=== PATIENT | female | born 1985 | race Caucasian/White ===

== ENCOUNTER 2024-06-29 09:48 | Outpatient (CLI) | payer OTHER, SELFPAY ==
[2024-06-29 20:35] LABS: Alanine Aminotransferase 24 U/L (6-35); Albumin Level 4.2 g/dL (3.5-5.1); Alkaline Phosphatase 93 U/L (38-126); Anion Gap 9 mmol/L (4-12); Aspartate Amino Transferase 34 U/L (14-36); Bilirubin,Total 0.3 mg/dL (0.2-1.3); Blood Urea Nitrogen 14 mg/dL (7-17); Calcium 8.7 mg/dL (8.4-10.2); Carbon Dioxide 28 mmol/L (22-30); Chloride 97 mmol/L (98-107); Cholesterol 190 mg/dL (0-200); Estimated Glomerular Filt Rate > 60; Glucose 297 mg/dL (65-110); HDL Direct 48 mg/dL; Potassium 4.6 mmol/L (3.4-5.0); Sodium 134 mmol/L (137-145); Triglycerides 137 mg/dL (<150)
[2024-06-29 20:46] LABS: LDL Cholesterol Direct 117 mg/dL
[2024-06-29 21:09] LABS: Creatinine Urine 67.5 mg/dL
[2024-06-29 21:14] LABS: MALB Creatinine Ratio 12.7 mg/g (0-30); Microalbumin Urine Random 8.6 mg/L (0-16.7)
[2024-06-29 21:24] LABS: Free T4 Free Thyroxine 1.37 ng/mL (0.78-2.19); Vitamin D 25 Hydroxy 53.9 ng/mL
[2024-06-30 11:38] LABS: C-Peptide <0.10 ng/mL (0.80-3.85)
== END 2024-06-29 09:49 | disposition home or self-care (01) ==
LOC: ANHGOSHLAB 09:50
PROVIDERS: Visit Provider Internal Medicine Endocrinology, Diabetes & Metabolism
DX: E10.9 Type 1 diabetes mellitus without complications (principal); E03.9 Hypothyroidism, unspecified
CPT/HCPCS: 36415; 80053; 80061; 82043; 82306; 82607; 84439; 84443; 84681

== ENCOUNTER 2024-11-02 09:55 | Outpatient (CLI) | payer OTHER, SELFPAY ==
[2024-11-02 16:27] LABS: Free T4 Free Thyroxine 1.14 ng/dL (0.78-2.19)
== END 2024-11-02 09:56 | disposition home or self-care (01) ==
LOC: ANHGOSHLAB 09:59
PROVIDERS: Visit Provider Internal Medicine Endocrinology, Diabetes & Metabolism
DX: E03.9 Hypothyroidism, unspecified (principal)
CPT/HCPCS: 36415; 84439; 84443

== ENCOUNTER 2025-04-13 09:11 | Outpatient (CLI) | payer OTHER, SELFPAY ==
[2025-04-13 12:39] LABS: Hematocrit 42.8 % (37.0-47.0); Hemoglobin 13.4 g/dL (12.0-15.0); Mean Corpuscular HGB Conc 31.3 g/dl (32-36); Mean Corpuscular Volume 79.9 fl (80-100); Platelet Count Result 297 k/mm3 (150-375); Red Blood Count 5.36 M/mm3 (4.2-5.4); Red Cell Distribution Width 13.7 % (11.5-14.5); White Blood Count 7.4 K/mm3 (4.5-10.0)
[2025-04-13 13:09] LABS: Creatinine Urine 167.4 mg/dL; Free T4 Free Thyroxine 1.37 ng/dL (0.78-2.19); Vitamin D 25 Hydroxy 58.1 ng/mL
[2025-04-13 13:40] LABS: Alanine Aminotransferase 29 U/L (6-35); Albumin Level 4.3 g/dL (3.5-5.1); Alkaline Phosphatase 60 U/L (38-126); Anion Gap 11 mmol/L (4-12); Aspartate Amino Transferase 29 U/L (14-36); Bilirubin,Total 0.3 mg/dL (0.2-1.3); Blood Urea Nitrogen 11 mg/dL (7-17); Calcium 9.4 mg/dL (8.4-10.2); Carbon Dioxide 27 mmol/L (22-30); Chloride 103 mmol/L (98-107); Cholesterol 194 mg/dL (0-200); Estimated Glomerular Filt Rate > 60; Glucose 112 mg/dL (65-110); HDL Direct 42 mg/dL; Potassium 4.2 mmol/L (3.4-5.0); Sodium 141 mmol/L (137-145); Total Protein 8.2 g/dL (6.3-8.2); Triglycerides 182 mg/dL (<150)
[2025-04-13 14:08] LABS: LDL Cholesterol Direct 107 mg/dL
[2025-04-13 14:15] LABS: Thyroid Stimulating Hormone 0.313 uIU/mL (0.465-4.680)
== END 2025-04-13 09:12 | disposition home or self-care (01) ==
LOC: ANHGOSHLAB 09:12
PROVIDERS: PCP Internal Medicine; Visit Provider Internal Medicine Endocrinology, Diabetes & Metabolism
DX: E10.65 Type 1 diabetes mellitus with hyperglycemia (principal); E03.9 Hypothyroidism, unspecified; E10.69 Type 1 diabetes mellitus with other specified complication; E78.5 Hyperlipidemia, unspecified; E55.9 Vitamin D deficiency, unspecified
CPT/HCPCS: 36415; 80053; 80061; 82043; 82306; 82607; 84439; 84443; 85027

== ENCOUNTER 2025-05-23 11:29 | Outpatient (CLI) | payer OTHER, SELFPAY ==
--- OUTSIDE RECORDS SUMMARY | 2025-05-23 11:53 | XMS_ITS | Referral Summary ---
Author Organization [address] Address [address] [place] [id number] Care Team Providers Care Makeup Editor Name Role Phone Base, [facility] Primary Care Provider Allergies Active Allergy Reactions Criticality Noted Date Comments [place] Anaphylaxis High 11/26/2021 Avocado Anaphylaxis High 11/26/2021 Levofloxacin Rash Medium 07/03/2015 Shellfish Derived Anaphylaxis High 10/22/2021 Medications acetaminophen (TYLENOL) 325 mg tablet Take 2 tablets (650 mg total) by mouth every 6 (six) hours as needed 03/21/20 22 Active buPROPion XL (WELLBUTRIN XL) 150 mg 24 hr tablet Take 1 tablet (150 mg total) by mouth daily Active busPIRone (BUSPAR) 15 mg tablet See Instructions, Take 1 tab by mouth every 8 hours as needed for acute anxiety., # 45 tab(s), 0 total refill(s), Maintenance, Pharmacy: [facility] #[id number] 01/21/20 25 Active cyclobenzaprine (FLEXERIL) 10 mg tablet Take 1 tablet (10 mg total) by mouth as needed 12/19/[address] (CYMBALTA) 60 mg capsule Take 1 capsule (60 mg total) by mouth 05/24/20 24 Active ibuprofen (ADVIL,MOTRIN) 800 mg tablet Take 1 tablet (800 mg total) by mouth every 6 (six) hours as needed 08/24/20 12 Active insulin aspart (NovoLOG) 100 unit/mL vial for injection Inject under the skin 04/19/20 19 Active insulin glargine 100 unit/mL vial for injection Inject 40 Units under the skin 02/22/20 11 Active losartan (COZAAR) 100 mg tablet Take 1 tablet (100 mg total) by mouth 05/03/20 24 Active sertraline (ZOLOFT) 100 mg tablet Take 1 tablet (100 mg total) by mouth daily 04/19/20 19 Active levothyroxine (SYNTHROID) 200 mcg tablet See Instructions, TAKE 1 TABLET BY MOUTH EVERY DAY FOR 5 DAYS AND 2 TABLETS DAILY FOR 2 DAYS A WEEK, # 108 tab(s), 3 total refill(s), Maintenance, TAKE 1 TABLET BY MOUTH EVERY DAY FOR 5 DAYS AND 2 TABLETS DAILY FOR 2 DAYS A WEEK, Pharmacy: [facility] #[id number] 11/26/19 22 Active Zepbound 15 mg/0.5 mL pen injector ADMINISTER 15 MG UNDER THE SKIN WEEKLY 01/16/20 25 Active benzonatate (TESSALON) 200 mg capsuleIndications: Acute nasopharyngitis Take 1 capsule (200 mg total) by mouth 3 (three) times a day as needed for cough keep tessalon out of reach of children, especially children under the age of 10, due to possible serious risk such as if ingested by children under the age of 10. 30 capsule 01/31/20 25 Active albuterol HFA (PROVENTIL HFA,VENTOLIN HFA,PROAIR HFA) 90 mcg/actuation inhalerIndications: Exacerbation of asthma, unspecified asthma severity, unspecified whether persistent Inhale 2 puffs every 6 (six) hours as needed for wheezing 1 each 01/31/20 25 026 Active inhalational spacing device (Aerochamber MV) spacerIndications:E xacerbation of asthma, unspecified asthma severity, unspecified whether persistent Use with albuterol inhaler 1 each 01/31/20 25 Active Active Problems Problem Noted Date Diagnosed Date Type 1 diabetes mellitus 12/28/2015 Social History Tobacco Use Types Packs/Day Years Used Date Smoking Tobacco: Every Day Comments Unknown Sex and Gender Information Value Date Recorded Sex Assigned at Not on file 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 Gender Identity Not on file Sexual Orientation Not on file Last Filed Vital Signs Vital Sign Reading Time Taken Comments Blood Pressure 120/62 02/09/2025 7:26 PM CDT Pulse 93 02/09/2025 7:26 PM CDT Temperature 37 C (98.6 F) 02/09/2025 7:26 PM CDT Respiratory Rate 20 02/09/2025 7:26 PM CDT Oxygen Saturation 98% 02/09/2025 7:26 PM CDT Inhaled Oxygen Concentration - - Weight 113.9 kg (251 lb) 02/09/2025 7:26 PM CDT Height - - Body Mass Index - - Plan of Treatment Not on file Insurance [facility] Care Teams Makeup Editor Relationship Specialty Start Date End Date [facility] [address] [place] [address] PCP - General 09/07/23
--- OUTSIDE RECORDS SUMMARY | 2025-05-23 11:53 | XMS_ITS | Clinical Summary ---
Author Organization [facility] Address [address] [place] [address] Care Team Providers Care Marine Service Operator Name Role Phone Carleen Stewart MD Unavailable Shilo Watson INFANT NANNY-ADMINISTRATIVE SUPPORT SPECIALIST Unavailable Wilfredo Ch MD Primary Care Provider [phone] Source Comments [facility],non-owned Affiliates and Associated Physician Practices is amultiple site organization consisting of ambulatory clinics and hospital sitesin [place], [place], [place] and [place]. This disclosure is being madepursuant to the Care Everywhere program and may not contain all information available regarding this patient. Last updated 18.[facility] Allergies Active Allergy Reactions Criticality Noted Date Comments Levofloxacin Rash Low 07/03/2015 Medications * Be aware that medications may not be up to date on this document. Alwaysverify current medications with the patient. buPROPion XL 24hr (WELLBUTRIN XL) 150 MG tablet Take 150 mg by mouth once daily. Active ibuprofen (MOTRIN) 800 MG tablet Take 800 mg by mouth every 6 hours as needed for Pain. Active cyclobenzaprine (FLEXERIL) 10 MG tablet Take 10 mg by mouth as needed for Muscle Spasms. Active levothyroxine (SYNTHROID) 75 MCG tablet Take 75 mcg by mouth daily before breakfast Active Blood Glucose Monitoring Suppl (FREESTYLE LITE) ALON Use 1 Each 6 times daily while awake E 10.65 1 Device 0 6 Active blood glucose test strip Use 1 Strip 6 times daily while awake 600 Strip 0 6 Active lancets Use 1 Each 6 times daily while awake 600 Each 0 6 Active NOVOLOG FLEXPEN pen INJECT 10 UNITS THREE TIMES A DAY WITH EACH MEAL 1 Box 0 6 Active LANTUS SOLOSTAR pen INJECT 45 UNITS AT BEDTIME 1 Box 0 6 Active Active Problems Problem Noted Date Diagnosed Date Uncontrolled type 1 diabetes mellitus 05/26/2013 Overview (07/19/2015): Tobacco use disorder 05/26/2013 Social History Tobacco Use Types Packs/Day Years Used Date Smoking Tobacco: Every Day Cigarettes 1 13.8 Started: 08/19/2011 Alcohol Use Standard Drinks/Week Comments Not Asked 0 (1 standard drink = 0.6 oz pur e alcohol) Comments Unknown Sex and Gender Information Value Date Recorded Sex Assigned at Not on file Legal Sex Female 12:45 PM SHOP TECH Gender Identity Not on file Sexual Orientation Not on file Last Filed Vital Signs Vital Sign Reading Time Taken Comments Blood Pressure 161/81 12/10/2015 1:21 PM SHOP TECH Pulse 95 12/10/2015 1:21 PM SHOP TECH Temperature 36.3 C (97.3 F) 12/10/2015 1:21 PM SHOP TECH Respiratory Rate - - Oxygen Saturation - - Inhaled Oxygen Concentration - - Weight 91.2 kg (201 lb) 12/10/2015 1:21 PM SHOP TECH Height 162.6 cm (5' 4) 12/10/2015 1:21 PM SHOP TECH Body Mass Index 34.5 12/10/2015 1:21 PM SHOP TECH Plan of Treatment Health Maintenance Due Date Last Done Comments HIV SCREENING 2002 HEPATITIS C SCREENING 04/03/2005 DTAP/TDAP/TD VACCINES (1 - Tdap) 2006 HEPATITIS B VACCINE (1 of 3 - 19+ 3-dose series) 2006 PNEUMOCOCCAL VACCINE (1 of 2 - PCV) 2006 HPV VACCINE (1 - 3-dose SCDM series) 2014 DIABETES-FOOT EXAM WITH MONOFILAMENT 05/15/2014 DIABETES-SERUM CREATININE 04/03/2015 04/03/2014 DIABETES-HGB A1C 01/01/2016 07/03/2015, 05/15/2014 COVID-19 VACCINE (1 - 2023-2 5 season) 2024 DEPRESSION SCREENING 10/19/2024 DIABETES - URINE PROTEIN SCREENING 10/19/2024 INFLUENZA VACCINE (#1) 2025 ZOSTER VACCINE (1 of 2) 2037 HIB VACCINE Aged Out No longer eligi ble based on patient's age to complete this topic MENINGOCOCCAL (Group B) VACCINE SHARED DECISION-MAKING Aged Out No longer eligible based on patient's age to complete this topic MENINGOCOCCAL GROUPS A/C/Y/W VACCINE Aged Out No longer eligible b ased on patient's age to complete this topic Procedures Procedure Name Priority Date/Time Associated Diagnosis Comments HEMOGLOBIN A1C - POINT OF CARE (AMB) Routine 07/03/2015 4:18 PM CDT Type I (juvenile type) diabetes mellitus without mention of complication, uncontrolled COMPREHENSIVE METABOLIC PANEL Routine 04/03/2014 8:27 AM CDT Type II or unspecified type diabetes mellitus without mention of complication, uncontrolled from Last 3 Months or Most Recently Relevant to Health Maintenance Results * (ABNORMAL) HEMOGLOBIN A1C - POINT OF CARE (AMB) (07/03/2015 4:18 PM CDT) Hemoglobin A1c POCT 9.8 % QC Verified Yes Blood specimen (specimen) BLOOD SPECIMEN / Unknown 07/03/2015 4:18 PM CDT Shilo Sanford INFANT NANNY-ADMINISTRATIVE SUPPORT SPECIALIST LAB - POINT OF C ARE ORDERABLES Final Result * (ABNORMAL) COMPREHENSIVE METABOLIC PANEL (04/03/2014 8:27 AM CDT) Glucose 272(H) 65 - 99 mg/dL [facility] INSURANCE BILL BUN 7 6 - 20 mg/dL [facility] BILL Creatinine 0.75 0.57 - 1.00 mg/dL [facility] INSURANCE BILL eGFR by MDRD 110 >59 mL/min/1.7 3 [facility] INSURANCE BILL eGFR by MDRD 127 >59 mL/min/1.7 3 [facility] INSURANCE BILL BUN/Creatinine Ratio 9 8 - 20 [facility] INSURANCE BILL Sodium 134 134 - 144 mmol/L [facility] INSURANCE BILL Potassium 3.8 3.5 - 5.2 mmol/L [facility] INSURANCE BILL Chloride 97 97 - 108 mmol/L [facility] INSURANCE BILL CO2 18 18 - 29 mmol/L [facility] INSURANCE BILL Comment:Please note refere nce interval change Calcium 9.3 8.7 - 10.2 mg/dL [facility] INSURANCE BILL Protein Total 7.4 6.0 - 8.5 g/dL [facility] INSURANCE BILL Albumin 4.7 3.5 - 5.5 g/dL [facility] INSURANCE BILL Globulin Total 2.7 1.5 - 4.5 g/dL [facility] INSURANCE BILL Albumin/Globulin Ratio 1.7 1.1 - 2.5 [facility] INSURANCE BILL Bilirubin Total 0.5 0.0 - 1.2 mg/dL [facility] INSURANCE BILL Alkaline Phosphatase 67 39 - 117 IU/L [facility] INSURANCE BILL AST 13 0 - 40 IU/L [facility] INSURANCE BILL ALT 12 0 - 32 IU/L [facility] INSURANCE BILL Blood specimen (specimen) BLOOD SPECIMEN / Unknown 04/03/2014 8:27 AM CDT 04/03/2014 11:47 AM CDT Narrative Resulting Agency Comment [facility] [place] [address] [facility] [id number] Shilo Sanford INFANT NANNY-ADMINISTRATIVE SUPPORT SPECIALIST LAB - CHEMISTRY ORDERABLES Final Result [facility] INSURANCE BILL [address] [place] [address] from Last 3 Months or Most Recently Relevant to Health Maintenance Insurance [facility] Care Teams Marine Service Operator Relationship Specialty Start Date End Date Wilfredo Ch MD [address], [address] [place] [address] PCP - General Family Medicine 07/03/15 Carleen Stewart MD Endocrinology 05/26/13 Shilo Sanford, INFANT NANNY-ADMINISTRATIVE SUPPORT SPECIALIST [facility], [address] [place] [address] Nurse Practitioner 05/15/14
--- OUTSIDE RECORDS SUMMARY | 2025-05-23 11:53 | XMS_ITS | Clinical Summary ---
Author Organization [address] Address [address] [place] [phone] Care Team Providers Care Printer Helper Name Role Phone Base, [facility] Primary Care Provider Allergies Active Allergy Reactions Criticality Noted Date Comments [place] Anaphylaxis High 11/26/2021 Avocado Anaphylaxis High 11/26/2021 [...] 45 tab(s), 0 total refill(s), Maintenance, Pharmacy: [facility] #[id number] 01/21/20 25 Active cyclobenzaprine (FLEXERIL) 10 mg [...] DAILY FOR 2 DAYS A WEEK, Pharmacy: [facility] #[id number] 11/26/19 22 Active Zepbound 15 mg/0.5 mL [...] on file 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 Gender Identity Not on file Sexual Orientation Not on file Obstetrics History Last Filed Vital Signs Vital Sign Reading [...] Mass Index - - Plan of Treatment Health Maintenance Due Date Last Done Comments Albumin Creatinine Ratio, Urine 1987 Cervical Cancer Screening 1987 Depression Screening 1987 Foot Exam 1987 Hemoglobin A1C 1987 Hepatitis C Screening 1987 TSH Level 1987 eGFR 1987 Dilated Eye Exam 1997 Varicella Vaccines (1 of 2 - 13+ 2-dose series) 2000 Regular Well Visit/Exam 18-64 2005 Lipid Panel 08/22/2010 08/22/2009 HPV Vaccines (1 - 3-dose SCD M series) 2014 Pneumococcal vaccine <65 (2 of 2 - PCV) 05/25/2018 05/25/2017 Influenza Vaccine (#1) 2025 , 07/22/2018, 09/14/2017, Additional history exists DTaP/Tdap/Td Vaccine (4 - Td or Tdap) 01/22/2032 01/21/2022, 02/20/2014, 05/30/2013, Additional history exists Hepatitis B Screening Completed 10/19/2004 Insurance [facility] Care Teams Printer Helper Relationship Specialty Start Date End Date [facility] [address] [place] [address] PCP - General 09/07/23
--- OUTSIDE RECORDS SUMMARY | 2025-05-23 11:53 | XMS_ITS | Continuity of Care Document ---
Author Name [facility] Organization [facility] Care Team Providers Care Sharples Machine Operator Name Role Phone [facility] Unavailable Unavailable Problems Combined list of problems from Department of Defense and Veterans Affairs facilities. It does not include entries that were removed or entered in error. Problem Status Onset Date Problem Type Date of Resolution Comments Source Autoimmune disorder Active 05/09/2025 Diagnosis 6130C-Af-C- [facility] Back pain Active 05/09/2025 Diagnosis 6130C-Af- C- [facility] Shoulder pain Active 05/09/2025 Diagnosis 6130C -Af-C- [facility] Hypothyroid Active 05/09/2025 Diagnosis 6130C-A f-C- [facility] Anxiety disorder, unspecified Active 05/05/2025 Diagnosis 6130C-Af-C- [facility] Low back pain, unspecified Active 05/05/2025 Diagnosis 6130C-Af-C- [facility] HTN - Hypertension Active 05/05/2025 Diagnosis 6130C-Af-C- [facility] Skin lesion Active 05/04/2025 Diagnosis 6130C-A f-C- [facility] Low back pain Active 02/15/2025 Diagnosis 6130C -Af-C- [facility] Painful surgical scar Active 01/24/2025 Diagnosis 6130C-Af-C- [facility] Disappearance and of family member Active 09/09/2017 Condition DoD Hypothyroidism, unspecified Active 08/31/2017 Condition DoD 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 Condition DoD 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/2017 Condition 6130C-Af-C- [facility] Acquired trigger finger of both index fingers Active Condition 6130C-Af-C- [facility] Depression Active Condition 6130C-Af-C- [facility] Essential hypertension Active Condition 30-C- [facility] Hypothyroid Active Condition 30-C - [facility] Low back pain, unspecified Active Condition 30-C- [facility] Plantar fibromatosis Active Condition 30C [facility] Sprain of other part of left wrist and hand, initial encounter Active Condition 0045C-6th [facility]D ill Strain of muscle(s) and tendon(s) of the rotator cuff of left shoulder, initial encounter Active Condition 5C-6 [facility] ill Type 1 diabetes mellitus Active Condition C [facility] Medications Combined list of outpatient medications from Department of Defense and Veterans Affairs facilities.Medications provided include 1) outpatient medications from the last 15 months, and 2) patient-reported medications. Medication Details Route Status Patient Instructions Prescription Expires Prescription Number Last Dispense Date Ordering Provider Order Date Order Qty Source Advair HFA 115 mcg-21 mcg/inh aerosol inhaler 36 unknown unit, 0 Refill(s ), 0 total refill(s ), Soft Stop Discont inued 08/24/20232022 6130C-A f-C-[facility] albuterol 90 mcg/inh aerosol inhaler 2 Unknown, Unknown, 0 Refill(s ), 0 total refill(s ), Soft Stop Ordered 2023 6130C-A f-C-375 Th [facility] BuSpar Dividose 15 mg oral tablet 1 tab(s), Oral, BID, # 60 tab(s), 0 total refill(s ), [facility], Pharmacy : [facility] #[id number] Oral (given by mouth) Ordered 2024 60.0 6130C-A f-C-375 Th [facility] busPIRone 15 mg oral tablet See Instruct ions, Take 1 tab by mouth every 8 hours as needed for acute anxiety. , # 45 tab(s), 0 total refill(s ), [facility], Pharmacy : [facility] #[id number] Discont inued 04/12/20255 45.0 6130C-A -C-375 Medgr[facility]- [place] busPIRone 15 mg oral tablet See Instruct ions, Take 1 tab by mouth every 8 hours as needed for acute anxiety. , # 45 tab(s), 0 total refill(s ), [facility], Pharmacy : [facility] #[id number] Ordered 2024 45.0 6130C-A f-C-375 Medgr[facility]- [facility] cefdinir 300 mg oral capsule 20 EA, 0 Refill(s ), TAKE 1 CAPSULE BY MOUTH TWICE DAILY FOR 10 DAYS FOR INFECTIO N, 0 total refill(s ), Soft Stop Discont inued 08/24/20232022 6130C-A -C-375 [facility]gr[facility]- [place] Cozaar 25 mg oral tablet 1 tab(s), Oral, Daily, Take one tab by mouth every day for one week, then take 2 tabs by mouth every day., # 30 tab(s), 0 total refill(s ), [facility], Pharmacy : [facility] #[id number] Oral (given by mouth) Discont inued 03/01/20242023 30.0 6130C-A -C-375 [facility]- [place] Cozaar 50 mg oral tablet 1 tab(s), Oral, Daily, for blood pressure , # 90 tab(s), 3 total refill(s ), [facility], Pharmacy : [facility] #[id number] Oral (given by mouth) Discont inued 05/03/20242023 90.0 6130C-A -C-375 [facility]- [place] DULoxetine 60 mg oral delayed release capsule 1 cap(s), Oral, Daily, do not crush or chew, # 90 cap(s), 3 total refill(s ), [facility], Pharmacy : [facility] #[id number] Oral (given by mouth) Ordered 2023 90.0 6130C-A f-C-375 [facility]- [place] DULoxetine 60 mg oral delayed release capsule 1 cap(s), Oral, Daily, do not crush or chew, # 90 cap(s), 0 total refill(s ), [facility], Pharmacy : [facility] #[id number] Oral (given by mouth) Discont inued 05/24/20242023 90.0 6130C-A f-C-375 Th [facility]- [facility] hydrOXYzine hydrochlori de 25 mg oral tablet 1 tab(s), Oral, QID, PRN anxiety, # 120 tab(s), 3 total refill(s ), [facility]aintena [facility]ce, Pharmacy : [facility] #[id number] Oral (given by mouth) Discont inued 01/20/20252024 120.0 6130C-A f-C-375 Th [facility]- [facility] ibuprofen 800 mg oral tablet 30 EA, 0 Refill(s ), TAKE 1 TABLET BY MOUTH THREE TIMES DAILY NEEDED FOR PAIN WITH FOOD OR MILK, 0 total refill(s ), Soft Stop Discont inued 08/24/20232022 6130C-A f-C-375 Medgr[facility]- [place] labetalol 200 mg oral tablet See Instruct ions, Take 2 tablets by mouth three times daily, # 90 tab(s), 0 total refill(s ), Maintena nce, Take 2 tablets by mouth three times daily, Pharmacy : [facility] #[id number] Discont inued 08/24/20232022 90.0 6130C-A f-C-375 Th [facility]- [place] labetalol 200 mg oral tablet See Instruct ions, Take 2 tablets by mouth three times daily, # 540 tab(s), 0 total refill(s ), Maintena nce, Take 2 tablets by mouth three times daily, Pharmacy : [facility] #[id number] Discont inued 10/13/20232022 540.0 6130C-A f-C-375 Th [facility]- [place] labetalol 200 mg oral tablet See Instruct ions, Take 2 tablets by mouth three times daily, # 540 tab(s), 3 total refill(s ), Maintena nce, Take 2 tablets by mouth three times daily, Pharmacy : [facility] Discont inued 02/16/20242023 540.0 6130C-A -C-375 [facility]- [place] labetalol 200 mg oral tablet See Instruct ions, Take 1 tablet by mouth three times daily for 1 week, then take 1 tablet by mouth twice daily for a week, then stop., # 35 tab(s), 0 total refill(s ), Maintena nce, Take 2 tablets by mouth three times daily, Pharmacy : [facility] #[id number] Discont inued 03/01/20242023 35.0 6130C-A [facility] labetalol 200 mg oral tablet 540 EA, 0 Refill(s ), TAKE 2 TABLETS BY MOUTH THREE TIMES DAILY, 0 total refill(s ), Soft Stop Discont inued 08/24/20232022 [facility] [place] [place] C375 [facility]- Rachid Lantus Solostar Pen 100 units/mL subcutaneou s solution 60 unit(s), SubCutan eous, Daily, # 15 mL, 5 total refill(s ), Maintena nce, 5 pens = 15 mL, Pharmacy : [facility] SubCut aneous (under the skin) Complet ed 03/08/20242023 15.0 6130-A -C-375 [facility] Lantus Solostar Pen 100 units/mL subcutaneou s solution 60 unit(s), SubCutan eous, Daily, # 15 mL, 0 total refill(s ), Maintena nce, 5 pens = 15 mL, Pharmacy : [facility] SubCut aneous (under the skin) Discont inued 12/15/20232023 15.0 6130C-A -C-375 [facility] levothyroxi ne 200 mcg oral tablet See Instruct ions, TAKE 1 TABLET BY MOUTH EVERY DAY FOR 5 DAYS AND 2 TABLETS DAILY FOR 2 DAYS A WEEK, # 108 tab(s), 0 total refill(s ), Maintena nce, TAKE 1 TABLET BY MOUTH EVERY DAY FOR 5 DAYS AND 2 TABLETS DAILY FOR 2 DAYS A WEEK, Pharmacy : [facility] #[id number] Discont inued 11/30/20232023 108.0 6130C-A f-C-375 Th [facility]- [place] levothyroxi ne 200 mcg oral tablet See Instruct ions, TAKE 1 TABLET BY MOUTH EVERY DAY FOR 5 DAYS AND 2 TABLETS DAILY FOR 2 DAYS A WEEK, # 108 tab(s), 0 total refill(s ), Maintena nce, TAKE 1 TABLET BY MOUTH EVERY DAY FOR 5 DAYS AND 2 TABLETS DAILY FOR 2 DAYS A WEEK, Pharmacy : [facility] #[id number] Discont inued 05/03/20242023 108.0 6130C-A f-C-375 Th [facility]- [place] levothyroxi ne 200 mcg oral tablet See Instruct ions, TAKE 1 TABLET BY MOUTH EVERY DAY FOR 5 DAYS AND 2 TABLETS DAILY FOR 2 DAYS A WEEK, # 108 tab(s), 3 total refill(s ), Maintena nce, TAKE 1 TABLET BY MOUTH EVERY DAY FOR 5 DAYS AND 2 TABLETS DAILY FOR 2 DAYS A WEEK, Pharmacy : [facility] #[id number] Ordered 2023 108.0 6130C-A f-C-375 Th [facility]- [place] levothyroxi ne 200 mcg oral tablet 115 EA, 0 Refill(s ), TAKE 1 TABLET BY MOUTH EVERY DAY FOR 5 DAYS AND 2 TABLETS DAILY FOR 2 DAYS A WEEK, 0 total refill(s ), Soft Stop Discont inued 08/24/20232022 6130C-A f-C-375 Th [facility]- [place] Levoxyl 200 mcg oral tablet 120 tab(s), 0 Refill(s ), 0 total refill(s ), Soft Stop Discont inued 08/24/20232022 6130C-A f-C-375 Th [facility]- [place] lidocaine 5% topical patch 1 patch(es ), Topical, Daily, Leave on for up to 12 hours within a 24 hour period (12 hours on, 12 hours off), # 30 patch(es ), 3 total refill(s ), Maintena nce, Pharmacy : [facility] #[id number] Topica l (on the skin) Ordered 2024 30.0 6130C-A f-C-375 Th [facility]- [place] losartan 100 mg oral tablet 1 tab(s), Oral, Daily, for blood pressure , # 90 tab(s), 3 total refill(s ), Christine reid, Pharmacy : [facility] #[id number] Oral (given by mouth) Ordered 2024 90.0 6130C-A f-C-375 Th [facility]- [facility] losartan 100 mg oral tablet 1 tab(s), Oral, Daily, for blood pressure , # 90 tab(s), 3 total refill(s ), Hard [facility], Pharmacy : [facility] #[id number] Oral (given by mouth) Complet ed 05/05/20252024 90.0 6130C-A f-C-375 Th [facility]- [facility] losartan 100 mg oral tablet 2 Unknown, Unknown, 1 Refill(s ), 0 total refill(s ), Soft Stop Discont inued 08/24/20232022 6130C-A f-C-375 Th [facility]- [facility] LOSARTAN POTASSIUM (LOSARTAN POTASSIUM), 50 MG, TABLET, ORAL, [facility], 1000 ea. BOTTLE Active [id number] 4 2023 90 Pharmac y Data Transac tion Service Facilit y LOSARTAN POTASSIUM (LOSARTAN POTASSIUM), 50 MG, TABLET, ORAL, [facility], 1000 ea. BOTTLE Active [id number] 4 2023 90 Pharmac y Data Transac tion Service Facilit y metFORMIN 500 mg oral tablet 180 EA, 0 Refill(s ), 0 total refill(s ), Soft Stop Discont inued 08/24/20232022 6130C-A f-C-375 Th [facility]- [place] methocarbam ol 500 mg oral tablet 2 tab(s), Oral, QID, X 10 days, # 80 tab(s), 0 total refill(s ), Acute, [facility] : [email or web address] #[id number] Oral (given by mouth) Complet ed 09/16/20242023 80.0 6130C-A f-C-375 Th [facility]- [facility] methocarbam ol 750 mg oral tablet 15 EA, 0 Refill(s ), 0 total refill(s ), Soft Stop Discont inued 08/24/20232022 6130C-A f-C-375 Th [facility]- [facility] montelukast 10 mg oral tablet 2 Unknown, Unknown, 0 Refill(s ), 0 total refill(s ), Soft Stop Discont inued 08/24/20232022 6130C-A f-C-375 Th [facility]- [facility] needle pen 30g 8mm 1 EA, N/A, As Directed , # 100 EA, 0 total refill(s ), Maintena nce, Supply, Route to [facility] Not Applic able Complet ed 01/20/20252024 100.0 6130C-A f-C-375 Th [facility]- [facility] NovoLOG 100 units/mL injectable solution 180 vial(s), 0 Refill(s ), 0 total refill(s ), Soft Stop Discont inued 12/15/20232023 6130C-A f-C-375 Th [facility]- [facility] NovoLOG FlexPen 100 units/mL injectable solution See Instruct ions, SubCutan eous TID(AC) at beginnin g of meal or within 20 minutes of starting a meal. Initiate treatmen t by injectin g 14 units before each meal. Adjust dose to maintain premeal and bedtime glucose in target range., # 15 mL, 5 total refill(s ), Maintena nce, 5 pens = 15 mL, Pharmacy : [facility] Cancele d 03/14/20252024 15.0 6130C-A f-C-375 Th [facility]- [place] NovoLOG FlexPen 100 units/mL injectable solution See Instruct ions, SubCutan eous TID(AC) at beginnin g of meal or within 20 minutes of starting a meal. Initiate treatmen t by injectin g 14 units before each meal. Adjust dose to maintain premeal and bedtime glucose in target range., # 15 mL, 0 total refill(s ), Maintena nce, 5 pens = 15 mL, Pharmacy : [facility] Discont inued 12/15/20232023 15.0 6130C-A f-C- [facility] promethazin e 25 mg oral tablet 2 Unknown, Unknown, 0 Refill(s ), 0 total refill(s ), Soft Stop Discont inued 08/24/20232022 [facility] sertraline 100 mg oral tablet 1 tab(s), Oral, Daily, 90 EA, 0 Refill(s ), TAKE 1 TABLET BY MOUTH EVERY DAY, # 90 tab(s), 0 total refill(s ), [facility], Pharmacy : [facility] #[id number] Oral (given by mouth) Discont inued 02/16/20242023 90.0 [facility] sertraline 100 mg oral tablet 90 EA, 0 Refill(s ), TAKE 1 TABLET BY MOUTH EVERY DAY, 0 total refill(s ), Soft Stop Discont inued 08/24/202320[address] [place] [address] [facility] tirzepatide (Zepbound) 15 mg/0.5 mL inj-pen [4pens/2mL] 15 mg, SubCutan eous, every week, # 2 mL, 6 total refill(s ), Soft Stop Notes: refriger ate SubCut aneous (under the skin) Ordered 5 2024 2.0 Ambulat ory Pharmac y U-200 (conc) insulin lispro pen 200 units/mL [3mL] See Instruct ions, # 114 mL, 1 total refill(s ), Soft Stop Ordered 5 2024 114.0 Ambulat ory Pharmac y Allergies, Adverse Reactions, Alerts Combined list of allergies from Department of Defense and Veterans Affairs facilities. It does not include entries that were removed or entered in error. Substance Category Reaction Severity Reaction type Status Date Reported Comments Source Almonds Food allergy Shortness of breathe, hives, GI Reaction Severe Active Af -C-375 [facility]-S cott AVOCADO (LAURUS PERSEA) {Cla } Food allergy (disorder) Unknown active 8 [facility] Rachid [place] ([facility]) Avocados Drug allergy Unknown Unknown Active Ambulato ry Pharmacy levoFLOXacin Propensity to adverse reactions to substance Unknown Active 8 Unknown Organiza tion LEVOFLOXACIN (LEVOFLOXACI N) Drug allergy (disorder) Unknown active [address] [place] [address] Rachid Juwan ([facility]) Reglan Drug allergy shortness of breathe, feeling like doom, panic Severe Active Only had medicatioh n as IV push 6130C-Af -C-375Th [facility]-S cott shellfish Propensity to adverse reactions to substance Unknown Active 8 Unknown Organiza tion SHELLFISH CONTAINING PRODUCTS {Cla } Food allergy (disorder) Unknown active [address] [place] [address] R[facility]id [facility] ([facility]) Immunizations Combined list of available immunizations from the Department of Defense and Veterans Affairs facilities. Immunization Series Date Given Administered By Site Reaction Lot Number CVX Code Drug Household Personal Assistant Status Comments Source influenza, injectable, quadrivalent- pf 2020 150 GlaxoSmithKli ne complet ed influenza , injectabl e, quadrival ent-pf 08/05/21 Given Ambulat ory Pharmac y influenza, injectable, quadrivalent, preservative free 2020 DAVID, () Not Given influenza , injectabl e, quadrival ent, preservat сергей free DoD COVID Vaccine Moderna 2020 207 complet ed COVID Vaccine Moderna 06/13/21 Given Ambulat ory Pharmac y COVID-19, mRNA, LNP-S, PF, 100 mcg or 50 mcg dose 2020 QUINTANILLA, () Not Given COVID-19, mRNA, LNP-S, PF, 100 mcg or 50 mcg dose DoD COVID-19, mRNA, LNP-S, PF, 100 mcg or 50 mcg dose 2020 QUINTANILLA, () Not Given COVID-19, mRNA, LNP-S, PF, 100 mcg or 50 mcg dose DoD COVID-19, mRNA, LNP-S, PF, 100 mcg or 50 mcg dose 2020 QUINTANILLA, () Not Given COVID-19, mRNA, LNP-S, PF, 100 mcg or 50 mcg dose DoD COVID Vaccine Moderna 2020 207 complet ed COVID Vaccine Moderna 01/28/21 Given Ambulat ory Pharmac y COVID-19, mRNA, LNP-S, PF, 100 mcg or 50 mcg dose 2020 SOCORRO, () Not Given COVID-19, mRNA, LNP-S, PF, 100 mcg or 50 mcg dose DoD Influenza, injectable, MDCK, preservative free, quadrivalent 2019 HEMAL, () Not Given Influenza , injectabl e, MDCK, preservat сергей free, quadrival ent DoD influenza, injectable, quadrivalent- pf 2017 zzRig ht Arm [id number] 150 Seqirus complet ed influenza , injectabl e, quadrival ent-pf 07/22/18 Given Ambulat ory Pharmac y Influenza, injectable, quadrivalent, preservative free 1 2017 Unknown, Provider [id number] 150 Seqirus (SEQ) complet ed Influenza , injectabl e, quadrival ent, preservat сергей free DoD influenza, injectable, quadrivalent- pf 2016 [facility] Arm [id number] 150 GlaxoSmithKli ne complet ed influenza , injectabl e, quadrival ent-pf 09/14/17 Given Ambulat ory Pharmac y Influenza, injectable, quadrivalent, preservative free 1 2016 Unknown, Provider [id number] 150 SmithKline (SKB) complet ed Influenza , injectabl e, quadrival ent, preservat сергей free DoD Vital Signs Combined list of inpatient and outpatient Vital Signs from Department of Defense and Veterans Affairs, ranging from 12 months to all on record, depending upon the facility. Vital Sign Value Date Comments Source Temperature Oral 36.3 Stacy 03/08/2024 18:57:00 8000L-Rh-J-[facility] Systolic Blood Pressure 138 mm[Hg] 03/08/2024 18:57:00 6017W-Ce-Z-375 [facility] Diastolic Blood Pressure 82 mm[Hg] 03/08/2024 18:57:00 0917Q-Ks-J-[facility]-Rachid Respiratory Rate 20 br/min 03/08/2024 18:57:00 3653L-Mz-K-375 [place]-Rachid Blood Pressure Manual Automatic 03/08/2024 18:57:00 5864D-Jh-Q-375Th Medgrp-[facility] Peripheral Pulse Rate 78 bpm 03/08/2024 18:57:00 1622C-Il-E-375Th Medgr[facility] Mean Arterial Pressure, Cuff (Calc) 101 mm[Hg] 03/08/2024 18:57:00 8962B-Og-E-3 75Th Med[facility] BP Site Right arm 03/08/2024 18:57:00 6130C -Af-C-375Th Medgr[facility] Respiratory Rate 18 br/min 08/24/2023 17:00:00 3936B-Hu-O-375Th Medgr[facility] BP Site Left arm 08/24/2023 17:00:00 6130C -Af-C-375Th Medgr[facility] Peripheral Pulse Rate 89 bpm 08/09/2024 16:19:00 8601N-Uo-P-375Th Medgr[facility]-Rachid BP Site Left arm 08/09/2024 16:19:00 6130C -Af-C-375Th Medgr[facility] Blood Pressure Manual Automatic 08/09/2024 16:19:00 1726M-Ym-C-375Th Medgr[facility] Mean Arterial Pressure, Cuff (Calc) 102 mm[Hg] 08/09/2024 16:19:00 5168Q-Xn-B-3 75Th [facility] Systolic Blood Pressure 143 mm[Hg] 08/09/2024 16:19:00 3869L-Lf-O-375Th Medgrp-[facility]ach[facility] Diastolic Blood Pressure 81 mm[Hg] 08/09/2024 16:19:00 5660N-Hz-U-375Th Medgr[facility]ach[facility] Respiratory Rate 18 br/min 01/23/2025 16:00:00 9441B-Cs-R-375Th Medgr[facility] Peripheral Pulse Rate 88 bpm 01/23/2025 16:00:00 6467G-Qi-C-375Th Medgrp-[facility] Systolic Blood Pressure 138 mm[Hg] 01/23/2025 16:00:00 5998B-Ij-B-375Th Medgr[facility]ach[facility] Diastolic Blood Pressure 79 mm[Hg] 01/23/2025 16:00:00 0017I-Jl-T-375Th Medgrp-[facility] Mean Arterial Pressure, Cuff (Calc) 99 mm[Hg] 01/23/2025 16:00:00 2276C-Id-P-3 75Th Med[facility] Systolic Blood Pressure 126 mm[Hg] 01/20/2025 15:34:00 3249W-Ep-H-375Th Medgr[facility] Diastolic Blood Pressure 79 mm[Hg] 01/20/2025 15:34:00 3525C-Pd-E-375Th Medgr[facility]ach[facility] Mean Arterial Pressure, Cuff (Calc) 95 mm[Hg] 01/20/2025 15:34:00 6174P-Am-Y-3 75Th [facility] Peripheral Pulse Rate 80 bpm 01/20/2025 15:34:00 5250T-Be-P-375Th Medgrp-Rachid Respiratory Rate 16 br/min 01/20/2025 15:34:00 2945V-Pj-K-375Th Medgrp-Rachid BP Site Right arm 01/20/2025 15:34:00 6130C -Af-C-375Th Medgr[facility] Blood Pressure Manual Automatic 01/20/2025 15:34:00 2737V-Jn-H-375Th Medgr[facility]ach[facility] Respiratory Rate 18 br/min 05/05/2025 19:36:00 3376D-Nt-W-375Th Medgrp-[facility]ach[facility] Peripheral Pulse Rate 87 bpm 05/05/2025 19:36:00 6203Q-Ru-E-375Th Medgrp-Rachid Mean Arterial Pressure, Cuff (Calc) 91 mm[Hg] 05/05/2025 19:36:00 1345B-Oo-B-3 75Th Medgr[facility]-Rachid BP Site Left arm 05/05/2025 19:36:00 6130C -Af-C-375Th Medgrp-Rachid Systolic Blood Pressure 131 mm[Hg] 05/05/2025 19:36:00 0522R-Vb-O-375Th Medgrp-Rachid Diastolic Blood Pressure 71 mm[Hg] 05/05/2025 19:36:00 9813I-Oi-K-375Th Medgrp-Rachid Blood Pressure Manual Automatic 05/05/2025 19:36:00 6776Z-Cp-M-375Th Medgrp-[facility]ach[facility] Peripheral Pulse Rate 97 bpm 02/14/2025 19:58:00 6509R-Wb-W-375Th Medgr[facility]ach[facility] Respiratory Rate 18 br/min 02/14/2025 19:58:00 0515B-Nf-O-375Th Medgrp-Rachid BP Site Left arm 02/14/2025 19:58:00 6130C -Af-C-375Th Medgrp-Rachid Blood Pressure Manual Automatic 02/14/2025 19:58:00 4582D-Kf-M-375Th Medgrp-[facility]achid Systolic Blood Pressure 124 mm[Hg] 02/14/2025 19:58:00 6062S-Pa-W-375Th Medgrp-Rachid Diastolic Blood Pressure 78 mm[Hg] 02/14/2025 19:58:00 1074Q-Hb-K-375Th Medgrp-Rachid Mean Arterial Pressure, Cuff (Calc) 93 mm[Hg] 02/14/2025 19:58:00 0215T-Pp-X-3 75Th Medgr[facility]ach[facility] Systolic Blood Pressure 134 mm[Hg] 02/16/2024 19:27:00 4539C-Wj-Z-375Th Medgrp-Rachid Diastolic Blood Pressure 79 mm[Hg] 02/16/2024 19:27:00 3285K-Kd-M-375Th Medgrp-Rachid Mean Arterial Pressure, Cuff (Calc) 97 mm[Hg] 02/16/2024 19:27:00 9014N-Zr-X-3 75Th Medgr[facility]ach[facility] Peripheral Pulse Rate 72 bpm 02/16/2024 19:27:00 0274E-Jc-C-375Th Medgrp-Rachid Systolic Blood Pressure 127 mm[Hg] 11/22/2024 16:38:00 0055C-375th MED[facility]-Rachid Diastolic Blood Pressure 78 mm[Hg] 11/22/2024 16:38:00 0055C-375th MEDGRP-Rachid Mean Arterial Pressure, Cuff (Calc) 94 mm[Hg] 11/22/2024 16:38:00 0055C-375th MED[facility]ach[facility] Peripheral Pulse Rate 101 bpm 11/22/2024 16:38:00 0055C-375th [facility] Respiratory Rate 18 br/min 11/22/2024 16:38:00 0055C-375th [facility] Blood Pressure Manual Automatic 01/24/2025 18:55:00 8240N-Rn-F-375Th Medgrp-Rachid BP Site Left arm 01/24/2025 18:55:00 6130C -Af-C-375Th Medgr[facility] Peripheral Pulse Rate 86 bpm 01/24/2025 18:55:00 5031F-Pj-E-375Th Medgr[facility]-Rachid Temperature Oral 36.5 Stacy 01/24/2025 18:55:00 4671J-Ls-C-375Th Medgr[facility] Respiratory Rate 20 br/min 01/24/2025 18:55:00 7171J-Qr-J-375Th [facility] Systolic Blood Pressure 138 mm[Hg] 01/24/2025 18:55:00 6537I-Gs-B-375Th Medgr[facility]ach[facility] Diastolic Blood Pressure 82 mm[Hg] 01/24/2025 18:55:00 9769V-Bd-C-375Th Medgr[facility]achid Mean Arterial Pressure, Cuff (Calc) 101 mm[Hg] 01/24/2025 18:55:00 6675Y-Xu-A-3 75Th Med[facility]ach[facility] Systolic Blood Pressure 123 mm[Hg] 12/20/2024 20:00:00 1928J-Ys-G-375Th Medgr[facility]achid Diastolic Blood Pressure 73 mm[Hg] 12/20/2024 20:00:00 4872B-Ki-J-375Th Medgrp-Rachid Mean Arterial Pressure, Cuff (Calc) 90 mm[Hg] 12/20/2024 20:00:00 8712Z-Fz-J-3 75Th [facility]ach[facility] Blood Pressure Manual Automatic 12/20/2024 20:00:00 9158P-Vg-O-375Th Medgrp-Rachid BP Site Right arm 12/20/2024 20:00:00 6130C -Af-C-375Th Medgrp-Rachid Temperature Oral 36.7 Stacy 12/20/2024 20:00:00 0000O-Ww-O-375Th Medgrp-[facility]achid Peripheral Pulse Rate 101 bpm 12/20/2024 20:00:00 5297G-Ur-W-[facility] Respiratory Rate 22 br/min 12/20/2024 20:00:00 4404U-Kc-N-[facility] Encounters Combined list of: 1) Encounters from [facility] facilities going backup to the last 18 months, not all [facility] inpatient encounters are included; 2) Encounters from the Department of Defense facilities going backup to 280 months. Location Location Details Encounter Type Encounter Number Reason For Visit Attending Provider ADM Date DC Date Status Disposition Source [address] [place] [address])([facility] carly Med Tm B Non-AD BCC) OUTPATIENT [id number] new patient /referr als/med s/ CAROLYN MARINO 08/25 Released w/o Limitations [address] [place] [address] [facility]F amily Med Tm B Non-AD BCC) [address] [place] [address] [facility])(Sco tt Disease Managemen t) TELE CONSULT [id number] Notes Entered by: Dany TAMEZ 25 Aug 2017 1449 ------- ------- ------- ------- -- Diabeti c Managem ent ANNALISE TAMEZ 08/[address] [place] [address] [facility])(S cott Disease Managem ent) [address] [place] [address] [facility])(Bas e Operation al Medicine Clin) TELE CONSULT [id number] Notes Entered by: NAE CAMARGO 31 Aug 2017 1214 ------- ------- ------- ------- -- Lab results MERLINTERKIRK MELISSA 08/[address] [place] [address] [facility])(B ase Operati onal Medicin e Clin) [address] [place] [address])([facility] carly Med Tm B Non-AD BCC) TELE CONSULT [id number] Notes Entered by: VAISHALI WEEKS 31 Aug 2017 1430 ------- ------- ------- ------- -- Sx - sx persist - Sinus Pressur e/Jose marilyn/[phone] TRENT DAVIS 08/31 Referred for Appointment [address] [place] [address] [facility])(F amily Med Tm B Non-AD BCC) [address] [place] [address])(Sco tt MTF BHOP) OUTPATIENT [id number] dEPRESS ION JESUS ZACH D 09/09 Released w/o Limitations [address] [place] [address])(S cott [facility]) [address] [place] [address])(Band And Cuff Cutter ecology) TELE CONSULT [id number] Notes Entered by: Sudhakar MOONEY 17 Sep 2017 1537 ------- ------- ------- ------- -- Appt against referra l JUDE MOONEY 09/[address] [place] [address])(G ynecolo gy) [address] [place] [address])(Fam carly Med Tm B Non-AD BCC) TELE CONSULT [id number] Notes Entered by: Onelia ELIZONDO 23 Oct 2017 1138 ------- ------- ------- ------- -- Endocri nology Referra l Request Amendme ricardo/ Nolan chin/ [phone] - [facility] KIRK FERNANDEZ 10/[address] [place] [address])(F amily Med Tm B Non-AD BCC) [address] [place] [address])(Fam carly Med Tm B Non-AD BCC) OUTPATIENT [id number] Notes Entered by: CRISTOFER BOCANEGRA 29 Oct 2017 1530 ------- ------- ------- ------- -- f/u depress ion, protein CAROLYN Pennington 10/29 Released w/o Limitations [address] [place] [address])(F amily Med Tm B Non-AD BCC) [address] [place] [address])(Fam carly Med Tm B Non-AD BCC) TELE CONSULT [id number] Notes Entered by: NAE CAMARGO 18 Nov 2017 1221 ------- ------- ------- ------- -- KIRK Nicholas 11/[address] [place] [address])(F amily Med Tm B Non-AD BCC) [address] [place] [address] [facility])([facility] carly Med Tm B Non-AD BCC) TELE CONSULT [id number] Notes Entered by: CATHY CHEEK 07 Jan 2018 1358 ------- ------- ------- ------- -- Request for Lab Order - Appt 27 January / Nolan chin / - sgj KIRK FERNANDEZ 01/[address] [place] [address] [facility]F amily Med Tm B Non-AD BCC) [address] [place] [address] [facility])([facility] carly Med Tm B Non-AD BCC) OUTPATIENT [id number] F/U for diabete s / thyroid / medicat ions / lab results [id number] CAROLYN MARINO 01/07 Released w/o Limitations [address] [place] [address] [facility])( amily Med Tm B Non-AD BCC) [address] [place] [address] [facility])([facility] carly Med Tm B Non-AD BCC) TELE CONSULT [id number] Notes Entered by: NAE CAMARGO S 13 May 2018 1042 ------- ------- ------- ------- -- Lab results ANNALISE TAMEZ 05/13 Referred for Appointment [address] [place] [address] [facility])(F amily Med Tm B Non-AD BCC) [address] [place] [address] [facility])(Sco tt Disease Managemen t) TELE CONSULT [id number] Notes Entered by: Dany TAMEZ 16 Jun 2018 0746 ------- ------- ------- ------- -- Disease Managem ent-Hem oglobin A1C input into Care Point ANNALISE TAMEZ 06/16 Referred for Appointment [address] [place] [address] Rachid [place] ([facility])(S cott Disease Managem ent) [address] [place] [address] [facility])([facility] carly Med Tm B Non-AD BCC) OUTPATIENT [id number] Merged with [facility]; virtual decline d CAROLYN MARINO 07/02 Released w/o Limitations [address] [place] [address] [facility])(F amily Med Tm B Non-AD BCC) [address] [place] [address])(Fam carly Med Tm B Non-AD BCC) TELE CONSULT [id number] Notes Entered by: KEKE FULLER 06 Jul 2018 0917 ------- ------- ------- ------- -- FTR - [facility] paperwo floridalma - Nolan chin - [phone] CAROLYN MARINO 07/[address] [place] [address])(F amily Med Tm B Non-AD BCC) [address] [place] [address])(War rior Op Med Cln Tm A Ad) TELE CONSULT [id number] Notes Entered by: CORINNA RINALDI 16 Sep 2018 1210 ------- ------- ------- ------- -- Med Renewal -Referr al Request -Specia list F/U/Col anese-O anastasiya baptiste/ -MT Nice 09/16 Referred for Appointment [address] [place] [address])(W arrior Op Med Cln Tm A Ad) [address] [place] [address])(War rior Op Med Cln Tm A Ad) TELE CONSULT [id number] Notes Entered by: LUKASZ GARDNER 21 Sep 2018 1308 ------- ------- ------- ------- -- Medicat ion renewal /obszan pipe/[phone] MT Pinedo 09/21 Referred for Appointment [address] [place] [address])(W arrior Op Med Cln Tm A Ad) [address] [place] [address])(Sco tt Disease Managemen t) TELE CONSULT [id number] Notes Entered by: Dany TAMEZ 04 Oct 2018 1353 ------- ------- ------- ------- -- Disease Managem ent ANNALISE TAMEZ 10/04 Referred for Appointment [facility] [place] [place] ([facility])(S cott Disease Managem ent) [address] [place] [address] [phone] Scar conditi ons and fibrosi s of skin BORIS R VINEISGARBE Mercedes 01/24 Discharge Disposition: Home or Self Care [address] [place], [place] [phone] [address] [phone] Essenti al (primar y) hyperte nsion,L ow back pain, unspeci fied LEONEL TRACY 02/14 Discharge Disposition: Home or Self Care [address] [place], [place] [phone] [address] Between Visit [id number] 04/05 Discharge Disposition: Home or Self Care [address] [place] [address] [phone] Anxiety disorde r, unspeci fied,Lo w back pain, unspeci fied,Di sorder of the skin and subcuta neous tissue, unspeci fied DARIN PCRJOSE ALBERTO 05/05 Discharge Disposition: Home or Self Care [address] [place] [id number] [phone] Dorsalg ia, unspeci fied,Sy stemic involve ment of connect сергйе tissue, unspeci fied,Pa in in unspeci fied shoulde r,Hypot hyroidi sm, unspeci fied MIKY GARZA 05/09 Discharge Disposition: Home or Self Care [address] [place] [address] Procedures Combined list of: 1) Procedures from Department of Veterans Affairs facilities going back up to thelast 18 months, not all VA non-surgical procedures are included; 2) All procedures from the Department of Defense facilities. Procedure Procedure Type Code Date Perfomer Comments Sour e TELE ASSESS & MGT SRV PROV QUAL NONPHYS HLTH CARE PRO TO EST PAT,PARENT,GUARD NOT ORIG REL ASSESS & MGT SRV PROV W/IN PREV 7 DAYS NOR LEAD ASSESS & MGT SRV/PX W/IN NXT 24H/SOON APT; 21-30 MIN MED DIS 8 [facility] DISEASE MANAGEMENT PROGRAM, FOLLOW-UP/REASSESS MENT 8 DoD TELE ASSESS & MGT SRV PROV QUAL NONPHYS HLTH CARE PRO TO EST PAT,PARENT,GUARD NOT ORIG REL ASSESS & MGT SRV PROV W/IN PREV 7 DAYS NOR LEAD ASSESS & MGT SRV/PX W/IN NXT 24 HR/SOON APT;5-10 MIN MED DIS 8 DoD TELE ASSESS & MGT SRV PROV QUAL NONPHYS HLTH CARE PRO TO EST PAT,PARENT,GUARD NOT ORIG REL ASSESS & MGT SRV PROV W/IN PREV 7 DAYS NOR LEAD ASSESS & MGT SRV/PX W/IN NXT 24H/SOON APT; 11-20 MIN MED DIS 8 [facility] NURSING ASSESSMENT/EVALUAT ION 8 [facility] FOOT EXAMINATION PERFORMED (INCLUDES EXAMINATION THROUGH VISUAL INSPECTION, SENSORY EXAM WITH MONOFILAMENT, AND PULSE EXAM - REPORT WHEN ANY OF THE 3 COMPONENTS ARE COMPLETED) (DM) 8 DoD TELE ASSESS & MGT SRV PROV QUAL NONPHYS HLTH CARE PRO TO EST PAT,PARENT,GUARD NOT ORIG REL ASSESS & MGT SRV PROV W/IN PREV 7 DAYS NOR LEAD ASSESS & MGT SRV/PX W/IN NXT 24 HR/SOON APT;5-10 MIN MED DIS 8 DoD TELE ASSESS & MGT SRV PROV QUAL NONPHYS HLTH CARE PRO TO EST PAT,PARENT,GUARD NOT ORIG REL ASSESS & MGT SRV PROV W/IN PREV 7 DAYS NOR LEAD ASSESS & MGT SRV/PX W/IN NXT 24 HR/SOON APT;5-10 MIN MED DIS 8 DoD TELE ASSESS & MGT SRV PROV QUAL NONPHYS HLTH CARE PRO TO EST PAT,PARENT,GUARD NOT ORIG REL ASSESS & MGT SRV PROV W/IN PREV 7 DAYS NOR LEAD ASSESS & MGT SRV/PX W/IN NXT 24 HR/SOON APT;5-10 MIN MED DIS 8 DoD TELE ASSESS & MGT SRV PROV QUAL NONPHYS HLTH CARE PRO TO EST PAT,PARENT,GUARD NOT ORIG REL ASSESS & MGT SRV PROV W/IN PREV 7 DAYS NOR LEAD ASSESS & MGT SRV/PX W/IN NXT 24 HR/SOON APT;5-10 MIN MED DIS 7 DoD BRIEF EMOTIONAL/BEHAVIOR AL ASSESSMENT (EG, DEPRESSION INVENTORY, ATTENTION-DEFICIT/ HYPERACTIVITY DISORDER [ADHD] SCALE), WITH SCORING AND DOCUMENTATION, PER STANDARDIZED INSTRUMENT 7 DoD TELE ASSESS & MGT SRV PROV QUAL NONPHYS HLTH CARE PRO TO EST PAT,PARENT,GUARD NOT ORIG REL ASSESS & MGT SRV PROV W/IN PREV 7 DAYS NOR LEAD ASSESS & MGT SRV/PX W/IN NXT 24 HR/SOON APT;5-10 MIN MED DIS 7 DoD FOOT EXAMINATION PERFORMED (INCLUDES EXAMINATION THROUGH VISUAL INSPECTION, SENSORY EXAM WITH MONOFILAMENT, AND PULSE EXAM - REPORT WHEN ANY OF THE 3 COMPONENTS ARE COMPLETED) (DM) 7 DoD TELE ASSESS & MGT SRV PROV QUAL NONPHYS HLTH CARE PRO TO EST PAT,PARENT,GUARD NOT ORIG REL ASSESS & MGT SRV PROV W/IN PREV 7 DAYS NOR LEAD ASSESS & MGT SRV/PX W/IN NXT 24H/SOON APT; 21-30 MIN MED DIS 7 [facility] Non-Physician Phone Call To Pt/Provider Lengthy (21-30 min) Non-Physician Phone Call To Pt/Provider Lengthy (21-30 min) [id number] [phone] TAMEZANNALISE CUTLER Disease management program, follow-up/juma e ment 8 TAMEZANNALISE CUTLER Patient Counseling Medical Management Individual Patient Patient Counseling Medical Management Individual Patient [id number] TAMEZANNALISE CUTLER DoD Disease management program, follow-up/juma e ment 8 MT SO DoD Non-Physician Phone Call To Patient/Provider Brief (5-10min) Non-Physician Phone Call To Patient/Provide r Brief (5-10min) [phone] MARA DICKERSON [facility] Non-Physician Phone Call To Pt/Provider Intermed (11-20 min) Non-Physician Phone Call To Pt/Provider Intermed (11-20 min) [id number] TAMEZ, ANNALISE Long [facility] Disease management program, follow-up/juma e ment 8 TAMEZ, ANNALISE R [facility] Patient Counseling Medical Management Individual Patient Patient Counseling Medical Management Individual Patient [id number] TAMEZ, ANNALISE Mercedes [facility] Nursing a e ment/evaluation 8 TAMEZ, ANNALISE Mercedes [facility] Disease management program, follow-up/juma e ment 8 TAMEZ, ANNALISE Mercedes [facility] Patient Counseling Medical Management Individual Patient Patient Counseling Medical Management Individual Patient [id number] TAMEZ, ANNALISE Long [facility] Non-Physician Phone Call To Patient/Provider Brief (5-10min) Non-Physician Phone Call To Patient/Provide r Brief (5-10min) [id number] [phone] KIRK FERNANDEZ [facility] Non-Physician Phone Call To Patient/Provider Brief (5-10min) Non-Physician Phone Call To Patient/Provide r Brief (5-10min) [id number] KIRK FERNANDEZ [facility] Internet Med Svc Qual Nonphys Healthcare Prof Estab Patient Internet Med Svc Qual Nonphys Healthcare Prof Estab Patient [phone] CAROLYN MARINO [facility] Non-Physician Phone Call To Patient/Provider Brief (5-10min) Non-Physician Phone Call To Patient/Provide r Brief (5-10min) [phone] KIRK FERNANDEZ [facility] Non-Physician Phone Call To Patient/Provider Brief (5-10min) Non-Physician Phone Call To Patient/Provide r Brief (5-10min) [id number] JUDE MOONEY [facility] Non-Physician Phone Call To Patient/Provider Brief (5-10min) Non-Physician Phone Call To Patient/Provide r Brief (5-10min) [id number] KIRK FERNANDEZ [facility] Non-Physician Phone Call To Patient/Provider Brief (5-10min) Non-Physician Phone Call To Patient/Provide r Brief (5-10min) [phone] TRENT DAVIS [facility] Non-Physician Phone Call To Pt/Provider Lengthy (21-30 min) Non-Physician Phone Call To Pt/Provider Lengthy (21-30 min) [id number] TAMEZ, ANNALISE Long [facility] Disease management program, follow-up/juma e ment 7 TAMEZANNALISE DoD Patient Counseling Medical Management Individual Patient Patient Counseling Medical Management Individual Patient [id number] TAMEZ, ANNALISE Long [facility] No data available for this section Ambulato ry Pharmacy Social History Combined list of available smoking, tobacco, and other social history from Department of Defense and Veterans Affairs facilities. Social History Type Response Date Comment Sour e Sex Representation Female (finding) 05/19/2022 Unknown Organization This section is an empty social history section. DoD Tobacco Cigarette use: Never-cigarette user. Other Tobacco use: Never-other tobacco user (not cigarettes). Ambulatory Pharmacy Sexual Orientation Ambula tory Pharmacy Gender identity Ambulator y Pharmacy Assessment and Plan Combined list of future care activities from Department of Defense and Veterans Affairs facilities (e.g., assessment and plan notes, appointments, orders, and referrals). Additional future care activities may be listed in the Plan of Care section. Result Assessment and Plan Date Source Assessment and Plan Extracted from:Title : Auto-immune concerns - Office Clinic Note Author: MIKY LOPEZ MD Date: 05/09/25 1. 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 She describes to me having polyarthralgia, swelling and joint pain in the morning. S he also describes mid back pain that has persisted and worsened since 3 years ago when she was . She tells me that her thyroid had not been worked up completely either that she is aware of. Given her broad and wide constellation of symptoms, differential is broad and could include things such as rheumatoid arthritis, ankylosing spondylitis, Nadira's thyroiditis. She does not recall having any x-rays of her back. S he had x-ray of her shoulder several years ago after a fall injury and would like to follow-up on what i s going on there, that is her biggest concern for pain at this point. Discussed that t here are labs we could do to evaluate further. A greed to order MATHEW with reflex a nd a rheumatoid panel to rule out rheumatoid arthritis. Also ordered thyroiditis panel. CRP, ESR. Ordered a.m. cortisol as a drenal insufficiency can be common with some of the symptoms and a broad autoimmune complex. Imaging of the thoracic spine ordered given her pain, as well as the shoulder to evaluate further. Gregg medrano need a shoulder MRI moving forward. She is also s cheduled for acupuncture with me June 07 at 10:30 AM, she confirmed that appointment would work. Orders: MATHEW w/Reflex [id number] C-Reactive Protein Cortisol AM [id number] ESR Autoplus Free T3 Level Free T4 Level HLA B 27 Disease Association [id number] Rheumatoid Arthritis Prof [id number] Thyroid Abs [id number] Thyroid Stimulating Hormone XR Shoulder 4+ Views Left XR Spine Thoracic 3 Views Extracted from:Title: [facility] - Skin, Anxiety, Back pain Author: DARIN PIERCE MD Date: 05/05/25 1. S kin lesion Chronic, uncontrolled. Denies family hx of melanoma or personal hx of skin cancer. Desires total body skin exam, concerned about a bump that appears to possible be an AK. Describes h x of 3rd degree sunburn and infrequent 2nd degree sunburn. Patient prefers derm referral at this time for TBSE. - Given extensive sun exposure hx, will refer to derm for skin exam - Recommend sunscreen and minimizing sun exposure moving forward Ordered: Referral Request 2.0 - DoD 2. A nxiety disorder, unspecified Chronic, u ncontrolled. HPI and PE c/w anxiety. No SI/HI. Stable on current regimen. No complaint of s/e of medication non-adherence. Good social support. JUDY- 16 today, 15 previously, likely 2/2 extensive medical care for taking care of her daughter's new diagnosis, autoimmune encephalitis. - Increase buspar to 30mg qd - Continue counseling - Cont. benjamin vick atient does not prefer changing at this time. I think this is a good idea because it could be beneficial for her pain as well. - Patient has atarax prn for acute episodes, does not desire to take regularly - Follow-up in 2-3 months for mood - ER for SI/HI Ordered: Referral Request 2.0 - DoD 3. L ow back pain, unspecified Chronic, nonspecific, uncontrolled. Describes pain worst in low back but otherwise has nonspecific pain over her whole body at times. However, clinical presentation is not suspicious for autoimmune condition at t his t samuel. Hx and PE i s negative for joint swelling, specific joint pain, rash, morning stiffness. Suspect pain is likely driven more by other factors such as hx & #160;of depression, axniety. P atient did not relief with acupuncture, and i s agreeable to continuity of referral - Reassurance that likely not autoimmune at this time, recommend controlling depression, anxiety at this time. - Recommended aerobic exercise regularly with goal of 150m of activity a week - Referral to acupuncture placed - Lidocaine patches ordered for low back pain Orders: busPIRone(BuSpar Dividose 15 mg oral tablet), 1 tab(s), Oral, BID, # 60 tab(s), 0 total refill(s), Maintenance, Pharmacy: [facility] #[id number] [External Rx] lidocaine topical(lidocaine 5% topical patch), 1 patch(es), Topical, Daily, Leave on for up to 12 hours within a 24 hour period (12 hours on, 12 hours off), # 30 patch(es), 3 total refill(s), Maintenance, Pharmacy: [facility] #[id number] [External Rx] Capt Darin Pierce MD Chemistry Technologist, PGY-3 [facility], [place], [place] Addendum by TERRA ANAYA MD, Family Medicine on May 19, 2025 13:56:52 CDT I was present and available in the family medicine clinic during the patient's appointment.? The case was discussed with me and I agree with the assessment and plan as documented. ? HLF Extracted from:Title: [facility] Acup #5 - LBP, dragons Author: LEONEL DESHPANDE MD Date: 02/14/25 1. L ow back pain Acup t edgar, tolerated well. See proc note for details. Leonel Deshpande MD, CESAR, MPH PGY-3, Family Medicine [facility], [facility], [place], [place] Addendum by FANTASMA SILVA MD on February 15, 2025 14:23:35 CDT I certify that I was present for case discussion in the Family Medicine preceptor room at the time of this encounter. I have reviewed the note and agree with the findings, assessment, and plan except as I have documented below. Follow up as listed. All labs/imaging/consults to be followed by the ordering provider. Maj Chad () Family Medicine Physician [facility] [place], [place] Extracted from:Title: Office Clinic Note - Scar Infilitration Author: SHANT BUENROSTRO DO Date: 01/24/25 1. P ainful surgical scar See procedure narrative. Maj Shant Buenrostro DO [facility] Faculty Physician [address] [place] [address], [facility] [place] Extracted from:Title: Office Clinic Note - Acupuncture Author: SHANT BUENROSTRO DO Date: 01/23/25 1. L ow back pain, unspecified See procedure narrative for encounter details. Maj Shant Buenrostro DO [facility] Faculty Physician [address] [place] [address], [facility] [place] Extracted from:Title: [facility] - Anxiety Author: DESI ROSS DO Date: 01/20/25 1. A nxiety Acute on chronic. Prescribed buspirone for acute episodes of anxiety. Additionally, could consider switching duloxetine to a different SSRI in the future. Will order referral to psychology for pt as well. Ordered: Referral Request 2.0 - DoD 2. C hronic pain Chronic. Stable. Provided pt with fibromyalgia checklist to fill out and RTC in the future for further evaluation of chronic pain. Pt is currently seeing acupuncture as well. Orders: busPIRone(busPIRone 15 mg oral tablet), See Instructions, Take 1 tab by mouth every 8 hours as needed for acute anxiety., # 45 tab(s), 0 total refill(s), Maintenance, Pharmacy: [facility] #[id number] [External Rx] Desi Ross DO, Maj, [facility], Chemistry Technologist [address] [facility], [place] Addendum by TERRA ANAYA MD, Family Medicine on February 10, 2025 17:38:56 CDT I was present and available in the family medicine clinic during the patient's appointment.? The case was discussed with me and I agree with the assessment and plan as documented. ? HLF Extracted from:Title: [facility] [place] - Acup LBP Author: BLANCHE KASPER MD Date: 12/20/24 1. L ow back pain, unspecified See acupuncture note Capt Efraín Thao), [facility] Chemistry Technologist, PGY-2 [place] Addendum by THONY HALLMAN MD, Family Medicine on December 26, 2024 10:50:37 CDT I certify that I was present for case discussion in the Family Medicine preceptor room at the time of this encounter. I have reviewed the note and agree with the findings, assessment, and plan except as I have documented below. Follow up as listed. All labs/imaging/consults to be followed by the ordering provider. Thony Hallman MD Extracted from:Title: Ambulatory Patient Education Author: PANKAJ FELTON MD Date: 11/22/24 Orthopedics Chronic Back Pain Chronic back pain is back pain that lasts longer than 3 months. The cause of your back pain may not be known. Some common causes include: Wear and tear (degenerative disease) of the bones, disks, or tissues that connect bones to each other (ligaments) in your back. Inflammation and stiffness in your back (arthritis). If you have chronic back pain, you may have times when the pain is more intense (flare-ups). You can also learn to manage the pain with home care. Follow these instructions at home: Watch for any changes in your symptoms. Take these actions to help with your pain: Managing pain and stiffness If told, put ice on the painful area. You may be told to apply ice for the first 24 4 8 hours after a flare-up starts. Put ice in a plastic bag. Place a towel between your skin and the bag. Leave the ice on for 20 minutes, 2 3 times per day. If told, apply heat to the affected area as often as told by your health care provider. Use the heat source that your provider recommends, such as a moist heat pack or a heating pad. Place a towel between your skin and the heat source. Leave the heat on for 20 3 0 minutes. If your skin turns bright red, remove the ice or heat right away to prevent skin damage. The risk of damage is higher if you cannot feel pain, heat, or cold. Try soaking in a warm tub. Activity Avoid bending and other activities that make the pain worse. Have good posture when you stand or sit. When you stand, keep your upper back and neck straight, with your shoulders pulled back. Avoid slouching. When you sit, keep your back straight. Relax your shoulders. Do not round your shoulders or pull them backward. Do not sit or red hat open stack administrator one place for too long. Take brief periods of rest during the day. This will reduce your pain. Resting in a lying or standing position is often better than sitting to rest. When you rest for longer periods, mix in some mild activity or stretching between periods of rest. This will help to prevent stiffness and pain. Get regular exercise. Ask your provider what activities are safe for you. You may have to avoid lifting. Ask your provider how much you can safely lift. If you do lift, always use the right technique. This means you should: Bend your knees. Keep the load close to your body. Avoid twisting. Medicines Take yeev-wnw-ykzhcdr and prescription medicines only as told by your provider. You may need to take medicines for pain and inflammation. These may be taken by mouth or put on the skin. You may also be given muscle relaxants. Ask your provider if the medicine prescribed to you: Requires you to avoid driving or using machinery. Can cause constipation. You may need to take these actions to prevent or treat constipation: Drink enough fluid to keep your pee (urine) pale yellow. Take syqm-upi-onliyfa or prescription medicines. Eat foods that are high in fiber, such as beans, whole grains, and fresh fruits and vegetables. Limit foods that are high in fat and processed sugars, such as fried or sweet foods. General instructions Sleep on a firm mattress in a comfortable position. Try lying on your side with your knees slightly bent. If you lie on your back, put a pillow under your knees. Do not use any products that contain nicotine or tobacco. These products include cigarettes, chewing tobacco, and vaping devices, such as e-cigarettes. If you need help quitting, ask your provider. Contact a health care provider if: You have pain that does not get better with rest or medicine. You have new pain. You have a fever. You lose weight quickly. You have trouble doing your normal activities. You feel weak or numb in one or both of your legs or feet. Get help right away if: You are not able to control when you pee or poop. You have severe back pain and: Nausea or vomiting. Pain in your chest or abdomen. Shortness of breath. You faint. These symptoms may be an emergency. Get help right away. Call 911. Do not wait to see if the symptoms will go away. Do not drive yourself to the hospital. This information is not intended to replace advice given to you by your health care provider. Make sure you discuss any questions you have with your health care provider. Document Revised: 05/25/2023 Document Reviewed: 05/25/2023 Appear Patient Education 2023 [employer]. Extracted from:Title: ACU- LBP Author: PANKAJ FELTON MD Date: 11/22/24 1. L ow back pain, unspecified A cupuncture Note Date of Consent:03/08/2024 Treatment #: 2 Initial History:03/08 Franchesca jones presents to clinic today for first time acupuncture to help with her low back pain. She reports her low back pain started with the third trimester of her current child who is 2 years old, and has recently been w orsening. S topher giving she has not maintained many core exercises so does not have that extra stability; h as not been able to achieve satisfactory e xercise. S he u ses ibuprofen as needed. Denies any red flag symptoms such as incontinence, f oot drop, loss of sensation Interim History: Since last acupuncture over the summer with caring for kids lifting picking of putting down, walking the dog she is at a return of the low back pain. C urrently she is in physical therapy which is giving some relief, however still feels like the muscles are t ight. S eeking adjunct of therapy today. Pain is not deployment related. Patient is not on profile/mobility restriction for this condition. FOCUSED PHYSICAL EXAM: GENERAL: No acute distress ,obese NMSK: S peech is clear and lucid. Normal gait. No focal neuromuscular deficits. Normal ROM. Normal sensation. SKIN: No bleeding, signs of infection, or ecchymosis. Patient presents for evaluation and treatment with medical acupuncture. Routine risks and benefits for treatment with medical acupuncture and associated modalities were reviewed in detail with the patient. Specifically, these included bleeding and infection, worsening flare of symptoms, possible lightheadedness/dizziness, euphoric reaction, and others specific to the treatment. Benefits to include pain relief and as appropriate to the treatment modalities such as improved energy and mood. Treatment duration to be determined by response. Consent signed and placed in chart if not already done at previous visit. TREATMENTS: TMM: Tendinomuscular [place] treatment was performed on: -Ting needle placed on BL67. -[place] SI18 Local needles placed in lumbar region of back Localized then generalized erythema noted in the surface area covered. [place] were removed after generalized erythema resolved after approx 20 minutes.? Gua Sha: Gua Sha scraping performed over lumbar spine erector spinae, trapezius ands muscles. Robust erythematous reaction noted. Patient tolerated procedure well without complications. Pain pre-treatment: 5 /10 Pain post-treatment: 4 / 10 Post Treatment Instructions: Patient counseled about possibility of lightheadedness or euphoria during or after t reatment. Home care reviewed: no heavy exercise today, avoid alcohol, intercourse, food that is difficult for you to digest for the next 24 hours. Take all prescribed medication and discuss any changes with your doctor. Pain may increase/decrease/or remain the same in the next 2-4 days. ASP auricular needles (if applicable) will fall out on their own in the next 3-7 days. Advised to watch for signs/symptoms of infection r edness/pus/swelling and f/u RAFAEL or in the ER and to remove ear needles if that happens. Recommend that patient resume all other normal physical activity as tolerated including previously prescribed PT or CBT exercises except for restrictions noted above. The intention is that this patient can use this period of to maximize effect of PT o r CBT and begin to lengthen the interval between acupuncture treatments DISPO: F ollow up in 4-6 weeks t rial Lumbar Pens Capt Pankaj Felton MD Chemistry Technologist P GY-3 [facility] [address] [place], [place] Staffed By:Yobani the above note has been dictated partially or in totality with the assistance of [employer] dictation software. While it was proofread for errors, there may still be grammatical and dictation errors. Addendum by ANDREW ODELL DO on November 22, 2024 13:45:04 JEWELRY STORE MANAGER I certify that I was present for case discussion in the Family Medicine preceptor room at the time of this encounter. I have reviewed the note and agree with the findings, assessment, and plan except as I have documented below. Follow up as listed. All labs/imaging/consults to be followed by the ordering provider. Andrew Odell DO, Capt, [facility], Staff Physician PT meet criteria for tachycardia with HR of 101 and was not repeated during encounter. Will need to follow at next apt, but given pain and only 101 very low concern for need for acute workup at this time. if consistent at next apt (or higher) would recommend CBC and TSH check +/- EKG Extracted from:Title: [facility] - acupuncture referral, virtual Author: DESI ROSS DO Date: 10/07/24 1. L ow back pain C hronic. Stable. Referred pt to acupuncture. Ordered: Referral Request 2.0 - DoD Desi Ross DO, Maj, VIDAL, Chemistry Technologist [address], [place] [facility] Addendum by NELSON DIEGO MD on October 10, 2024 13:28:13 JEWELRY STORE MANAGER I was present and available in the family medicine clinic to discuss the patient's care during the time of the appointment. I agree with the resident's assessment and plan as documented. Nelson Diego MD, Faculty, [facility], [facility], Attending Physician Extracted from:Title: [facility] - PT referral (virtual) Author: DESI ROSS DO Date: 09/06/24 1. L ow back pain, unspecified Chronic. Referral for pelvic floor PT placed. Prescribed Robaxin for muscle spasm. Ordered: methocarbamol(methocarbamol 500 mg oral tablet), 2 tab(s), Oral, QID, X 10 days, # 80 tab(s), 0 total refill(s), Acute, 2 tab(s) Oral QID,x10 days, Pharmacy: [facility] #[id number] [External Rx] Referral Request 2.0 - DoD Desi Ross DO, Maj, [facility], Chemistry Technologist [address], [employer] Addendum by THONY HALLMAN MD on September 06, 2024 15:30:59 JEWELRY STORE MANAGER I certify that I was present for case discussion in the Family Medicine preceptor room at the time of this encounter. I have reviewed the note and agree with the findings, assessment, and plan except as I have documented below. Follow up as listed. All labs/imaging/consults to be followed by the ordering provider. Thony Hallman MD Extracted from:Title: Ambulatory Patient Education Author: PANKAJ FELTON MD Date: 03/08/24 Extracted from:Title: Left wrist and shoulder pain Author: DC ROJAS MD Date: 12/17/22 1. P ain of left wrist 37-year-old female with left wrist and left shoulder sprains. We discussed the nature of her injuries as well as v arious treatment options. R ecommend working with occupational physical therapy f or s prains of the l eft wrist and shoulder. Would like to see her back in 2 to 3 weeks f or r epeat examination and c are. The patient had the opportunity to ask numerous questions and was in agreement with the plan. Dc Rojas MD Orthopaedic Surgery [facility] [employer] Ordered: XR Shoulder Complete 2+ Views Left Referral Request 2.0 Referral Request 2.0 2. S houlder pain Ordered: XR Shoulder Complete 2+ Views Left Referral Request 2.0 Referral Request 2.0 3. S train of muscle(s) and tendon(s) of the rotator cuff of left shoulder, initial encounter Ordered: Referral Request 2.0 Referral Request 2.0 4. S prain of other part of left wrist and hand, initial encounter Ordered: Referral Request 2.0 Referral Request 2.0 Future Scheduled TestsLaboratoryANA w/Reflex [id number] 05/09/25Free T3 Level 05/09/25Free T4 Level 05/09/25HLA B 27 Disease Association [id number] 05/09/25Cortisol AM [id number] 05/09/25ESR Autoplus 05/09/25Rheumatoid Arthritis Prof [id number] 05/09/25yroid Abs [id number] 05/09/25C-Reactive Protein 7/22/25Thyroid Stimulating Hormone 05/09/25RadiologyXR Shoulder 4+ Views Left 05/09/25XR Spine Thoracic 3 Views 05/09/25 05/23/2025 [id number] [facility] Assessment and Plan Extracted from:Title : Auto-immune concerns - Office Clinic Note Author: MIKY LOPEZ MD Date: 05/09/25 1. 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 She describes to me having polyarthralgia, swelling and joint pain in the morning. S he also describes mid back pain that has persisted and worsened since 3 years ago when she was . She tells me that her thyroid had not been worked up completely either that she is aware of. Given her broad and wide constellation of symptoms, differential is broad and could include things such as rheumatoid arthritis, ankylosing spondylitis, Nadira's thyroiditis. She does not recall having any x-rays of her back. S he had x-ray of her shoulder several years ago after a fall injury and would like to follow-up on what i s going on there, that is her biggest concern for pain at this point. Discussed that t here are labs we could do to evaluate further. A greed to order MATHEW with reflex a nd a rheumatoid panel to rule out rheumatoid arthritis. Also ordered thyroiditis panel. CRP, ESR. Ordered a.m. cortisol as a drenal insufficiency can be common with some of the symptoms and a broad autoimmune complex. Imaging of the thoracic spine ordered given her pain, as well as the shoulder to evaluate further. M ay need a shoulder MRI moving forward. She is also s cheduled for acupuncture with me June 07 at 10:30 AM, she confirmed that appointment would work. Orders: MATHEW w/Reflex [id number] C-Reactive Protein Cortisol AM [id number] ESR Autoplus Free T3 Level Free T4 Level HLA B 27 Disease Association [id number] Rheumatoid Arthritis Prof [id number] Thyroid Abs [id number] Thyroid Stimulating Hormone XR Shoulder 4+ Views Left XR Spine Thoracic 3 Views Extracted from:Title: [facility] - Skin, Anxiety, Back pain Author: DARIN PIERCE MD Date: 05/05/25 1. S kin lesion Chronic, uncontrolled. Denies family hx of melanoma or personal hx of skin cancer. Desires total body skin exam, concerned about a bump that appears to possible be an AK. Describes h x of 3rd degree sunburn and infrequent 2nd degree sunburn. Patient prefers derm referral at this time for TBSE. - Given extensive sun exposure hx, will refer to derm for skin exam - Recommend sunscreen and minimizing sun exposure moving forward Ordered: Referral Request 2.0 - DoD 2. A nxiety disorder, unspecified Chronic, u ncontrolled. HPI and PE c/w anxiety. No SI/HI. Stable on current regimen. No complaint of s/e of medication non-adherence. Good social support. JUDY- 16 today, 15 previously, likely 2/2 extensive medical care for taking care of her daughter's new diagnosis, autoimmune encephalitis. - Increase buspar to 30mg qd - Continue counseling - Cont. cymbalta, p atient does not prefer changing at this time. I think this is a good idea because it could be beneficial for her pain as well. - Patient has atarax prn for acute episodes, does not desire to take regularly - Follow-up in 2-3 months for mood - ER for SI/HI Ordered: Referral Request 2.0 - DoD 3. L ow back pain, unspecified Chronic, nonspecific, uncontrolled. Describes pain worst in low back but otherwise has nonspecific pain over her whole body at times. However, clinical presentation is not suspicious for autoimmune condition at t his t samuel. Hx and PE i s negative for joint swelling, specific joint pain, rash, morning stiffness. Suspect pain is likely driven more by other factors such as hx & #160;of depression, axniety. P atient did not relief with acupuncture, and i s agreeable to continuity of referral - Reassurance that likely not autoimmune at this time, recommend controlling depression, anxiety at this time. - Recommended aerobic exercise regularly with goal of 150m of activity a week - Referral to acupuncture placed - Lidocaine patches ordered for low back pain Orders: busPIRone(BuSpar Dividose 15 mg oral tablet), 1 tab(s), Oral, BID, # 60 tab(s), 0 total refill(s), Maintenance, Pharmacy: [facility] #[id number] [External Rx] lidocaine topical(lidocaine 5% topical patch), 1 patch(es), Topical, Daily, Leave on for up to 12 hours within a 24 hour period (12 hours on, 12 hours off), # 30 patch(es), 3 total refill(s), Maintenance, Pharmacy: [facility] #[id number] [External Rx] Capt Darin Pierce MD Chemistry Technologist, PGY-[address] [place] [address], [facility], [place] Addendum by TERRA ANAYA MD, Family Medicine on May 19, 2025 13:56:52 CDT I was present and available in the family medicine clinic during the patient's appointment.? The case was discussed with me and I agree with the assessment and plan as documented. ? HLF Extracted from:Title: [facility] Acup #5 - LBP, dragons Author: LEONEL DESHPANDE MD Date: 02/14/25 1. L ow back pain Acup t edgar, tolerated well. See proc note for details. Leonel Deshpande MD, CESAR, MPH PGY-3, Family Medicine [facility], [facility], [place] Addendum by FANTASMA SILVA MD on February 15, 2025 14:23:35 CDT I certify that I was present for case discussion in the Family Medicine preceptor room at the time of this encounter. I have reviewed the note and agree with the findings, assessment, and plan except as I have documented below. Follow up as listed. All labs/imaging/consults to be followed by the ordering provider. Maj Chad () Family Medicine Physician [facility] [place], [place] Extracted from:Title: Office Clinic Note - Scar Infilitration Author: SHANT BUENROSTRO DO Date: 01/24/25 1. P ainful surgical scar See procedure narrative. Maj Shant Buenrostro DO Family Medicine Faculty Physician [address] [place] [address], [facility] Extracted from:Title: Office Clinic Note - Acupuncture Author: SHANT BUENROSTRO DO Date: 01/23/25 1. L ow back pain, unspecified See procedure narrative for encounter details. Maj Shant Buenrostro DO Family Medicine Faculty Physician [facility] [place] Extracted from:Title: [facility] - Anxiety Author: DESI ROSS DO Date: 01/20/25 1. A nxiety Acute on chronic. Prescribed buspirone for acute episodes of anxiety. Additionally, could consider switching duloxetine to a different SSRI in the future. Will order referral to psychology for pt as well. Ordered: Referral Request 2.0 - DoD 2. C hronic pain Chronic. Stable. Provided pt with fibromyalgia checklist to fill out and RTC in the future for further evaluation of chronic pain. Pt is currently seeing acupuncture as well. Orders: busPIRone(busPIRone 15 mg oral tablet), See Instructions, Take 1 tab by mouth every 8 hours as needed for acute anxiety., # 45 tab(s), 0 total refill(s), Maintenance, Pharmacy: [facility] #[id number] [External Rx] Desi Ross DO, VIDAL Murillo, Chemistry Technologist [address] [place], [place] [address] Addendum by TERRA ANAYA MD, Family Medicine on February 10, 2025 17:38:56 CDT I was present and available in the family medicine clinic during the patient's appointment.? The case was discussed with me and I agree with the assessment and plan as documented. ? HLF Extracted from:Title: [facility] - Acup LBP Author: BLANCHE KASPER MD Date: 12/20/24 1. L ow back pain, unspecified See acupuncture note Capt [facility] Chemistry Technologist, PGY-2 [place] Addendum by THONY HALLMAN MD, Family Medicine on December 26, 2024 10:50:37 CDT I certify that I was present for case discussion in the Family Medicine preceptor room at the time of this encounter. I have reviewed the note and agree with the findings, assessment, and plan except as I have documented below. Follow up as listed. All labs/imaging/consults to be followed by the ordering provider. Thony Hallman MD Extracted from:Title: Ambulatory Patient Education Author: PANKAJ FELTON MD Date: 11/22/24 Orthopedics Chronic Back Pain Chronic back pain is back pain that lasts longer than 3 months. The cause of your back pain may not be known. Some common causes include: Wear and tear (degenerative disease) of the bones, disks, or tissues that connect bones to each other (ligaments) in your back. Inflammation and stiffness in your back (arthritis). If you have chronic back pain, you may have times when the pain is more intense (flare-ups). You can also learn to manage the pain with home care. Follow these instructions at home: Watch for any changes in your symptoms. Take these actions to help with your pain: Managing pain and stiffness If told, put ice on the painful area. You may be told to apply ice for the first 24 4 8 hours after a flare-up starts. Put ice in a plastic bag. Place a towel between your skin and the bag. Leave the ice on for 20 minutes, 2 3 times per day. If told, apply heat to the affected area as often as told by your health care provider. Use the heat source that your provider recommends, such as a moist heat pack or a heating pad. Place a towel between your skin and the heat source. Leave the heat on for 20 3 0 minutes. If your skin turns bright red, remove the ice or heat right away to prevent skin damage. The risk of damage is higher if you cannot feel pain, heat, or cold. Try soaking in a warm tub. Activity Avoid bending and other activities that make the pain worse. Have good posture when you stand or sit. When you stand, keep your upper back and neck straight, with your shoulders pulled back. Avoid slouching. When you sit, keep your back straight. Relax your shoulders. Do not round your shoulders or pull them backward. Do not sit or red hat open stack administrator one place for too long. Take brief periods of rest during the day. This will reduce your pain. Resting in a lying or standing position is often better than sitting to rest. When you rest for longer periods, mix in some mild activity or stretching between periods of rest. This will help to prevent stiffness and pain. Get regular exercise. Ask your provider what activities are safe for you. You may have to avoid lifting. Ask your provider how much you can safely lift. If you do lift, always use the right technique. This means you should: Bend your knees. Keep the load close to your body. Avoid twisting. Medicines Take wrwu-fjg-trbgvky and prescription medicines only as told by your provider. You may need to take medicines for pain and inflammation. These may be taken by mouth or put on the skin. You may also be given muscle relaxants. Ask your provider if the medicine prescribed to you: Requires you to avoid driving or using machinery. Can cause constipation. You may need to take these actions to prevent or treat constipation: Drink enough fluid to keep your pee (urine) pale yellow. Take rxop-ard-awiyquo or prescription medicines. Eat foods that are high in fiber, such as beans, whole grains, and fresh fruits and vegetables. Limit foods that are high in fat and processed sugars, such as fried or sweet foods. General instructions Sleep on a firm mattress in a comfortable position. Try lying on your side with your knees slightly bent. If you lie on your back, put a pillow under your knees. Do not use any products that contain nicotine or tobacco. These products include cigarettes, chewing tobacco, and vaping devices, such as e-cigarettes. If you need help quitting, ask your provider. Contact a health care provider if: You have pain that does not get better with rest or medicine. You have new pain. You have a fever. You lose weight quickly. You have trouble doing your normal activities. You feel weak or numb in one or both of your legs or feet. Get help right away if: You are not able to control when you pee or poop. You have severe back pain and: Nausea or vomiting. Pain in your chest or abdomen. Shortness of breath. You faint. These symptoms may be an emergency. Get help right away. Call 911. Do not wait to see if the symptoms will go away. Do not drive yourself to the hospital. This information is not intended to replace advice given to you by your health care provider. Make sure you discuss any questions you have with your health care provider. Document Revised: 05/25/2023 Document Reviewed: 05/25/2023 Appear Patient Education 2023 [employer] Extracted from:Title: ACU- LBP Author: PANKAJ FELTON MD Date: 11/22/24 1. L ow back pain, unspecified A cupuncture Note Date of Consent:03/08/2024 Treatment #: 2 Initial History:03/08 E ral presents to clinic today for first time acupuncture to help with her low back pain. She reports her low back pain started with the third trimester of her current child who is 2 years old, and has recently been w orsening. S topher giving she has not maintained many core exercises so does not have that extra stability; h as not been able to achieve satisfactory e xercise. S he u ses ibuprofen as needed. Denies any red flag symptoms such as incontinence, f oot drop, loss of sensation Interim History: Since last acupuncture over the summer with caring for kids lifting picking of putting down, walking the dog she is at a return of the low back pain. C urrently she is in physical therapy which is giving some relief, however still feels like the muscles are t ight. S eeking adjunct of therapy today. Pain is not deployment related. Patient is not on profile/mobility restriction for this condition. FOCUSED PHYSICAL EXAM: GENERAL: No acute distress ,obese NMSK: S peech is clear and lucid. Normal gait. No focal neuromuscular deficits. Normal ROM. Normal sensation. SKIN: No bleeding, signs of infection, or ecchymosis. Patient presents for evaluation and treatment with medical acupuncture. Routine risks and benefits for treatment with medical acupuncture and associated modalities were reviewed in detail with the patient. Specifically, these included bleeding and infection, worsening flare of symptoms, possible lightheadedness/dizziness, euphoric reaction, and others specific to the treatment. Benefits to include pain relief and as appropriate to the treatment modalities such as improved energy and mood. Treatment duration to be determined by response. Consent signed and placed in chart if not already done at previous visit. TREATMENTS: TMM: Tendinomuscular [place] treatment was performed on: -Ting needle placed on BL67. -[place]athering point SI18 Local needles placed in lumbar region of back Localized then generalized erythema noted in the surface area covered. [place] were removed after generalized erythema resolved after approx 20 minutes.? Gua Sha: Gua Sha scraping performed over lumbar spine erector spinae, trapezius ands muscles. Robust erythematous reaction noted. Patient tolerated procedure well without complications. Pain pre-treatment: 5 /10 Pain post-treatment: 10 Post Treatment Instructions: Patient counseled about possibility of lightheadedness or euphoria during or after t reatment. Home care reviewed: no heavy exercise today, avoid alcohol, intercourse, food that is difficult for you to digest for the next 24 hours. Take all prescribed medication and discuss any changes with your doctor. Pain may increase/decrease/or remain the same in the next 2-4 days. ASP auricular needles (if applicable) will fall out on their own in the next 3-7 days. Advised to watch for signs/symptoms of infection r edness/pus/swelling and f/u RAFAEL or in the ER and to remove ear needles if that happens. Recommend that patient resume all other normal physical activity as tolerated including previously prescribed PT or CBT exercises except for restrictions noted above. The intention is that this patient can use this period of to maximize effect of PT o r CBT and begin to lengthen the interval between acupuncture treatments DISPO: F ollow up in 4-6 weeks t rial Lumbar Pens Capt Pankaj Felton MD Chemistry Technologist P GY-3 [facility] [address] [place], [place] Staffed By:Yobani the above note has been dictated partially or in totality with the assistance of [employer] dictation software. While it was proofread for errors, there may still be grammatical and dictation errors. Addendum by ANDREW ODELL DO on November 22, 2024 13:45:04 JEWELRY STORE MANAGER I certify that I was present for case discussion in the Family Medicine preceptor room at the time of this encounter. I have reviewed the note and agree with the findings, assessment, and plan except as I have documented below. Follow up as listed. All labs/imaging/consults to be followed by the ordering provider. Capt Miranda DO, JENNY, Staff Physician PT meet criteria for tachycardia with HR of 101 and was not repeated during encounter. Will need to follow at next apt, but given pain and only 101 very low concern for need for acute workup at this time. if consistent at next apt (or higher) would recommend CBC and TSH check +/- EKG Extracted from:Title: [facility] acupuncture referral, virtual Author: DESI ROSS DO Date: 10/07/24 1. L ow back pain C hronic. Stable. Referred pt to acupuncture. Ordered: Referral Request 2.0 - DoD Desi Ross DO, , JENNY, Chemistry Technologist [facility] [place], [place] Addendum by NELSON DIEGO MD on October 10, 2024 13:28:13 JEWELRY STORE MANAGER I was present and available in the family medicine clinic to discuss the patient's care during the time of the appointment. I agree with the resident's assessment and plan as documented. Nelson Diego MD, Faculty, [facility], [facility], Attending Physician Extracted from:Title: [facility] [place] - PT referral (virtual) Author: DESI ROSS DO Date: 09/06/24 1. L ow back pain, unspecified Chronic. Referral for pelvic floor PT placed. Prescribed Robaxin for muscle spasm. Ordered: methocarbamol(methocarbamol 500 mg oral tablet), 2 tab(s), Oral, QID, X 10 days, # 80 tab(s), 0 total refill(s), Acute, 2 tab(s) Oral QID,x10 days, Pharmacy: [facility] #[id number] [External Rx] Referral Request 2.0 - DoD Desi Ross DO, [facility], [facility], Chemistry Technologist [address] [place], [place] Addendum by THONY HALLMAN MD on September 06, 2024 15:30:59 JEWELRY STORE MANAGER I certify that I was present for case discussion in the Family Medicine preceptor room at the time of this encounter. I have reviewed the note and agree with the findings, assessment, and plan except as I have documented below. Follow up as listed. All labs/imaging/consults to be followed by the ordering provider. Thony Hallman MD Extracted from:Title: Ambulatory Patient Education Author: PANKAJ FELTON MD Date: 03/08/24 Extracted from:Title: Left wrist and shoulder pain Author: DC ROJAS MD Date: 12/17/22 1. P ain of left wrist 37-year-old female with left wrist and left shoulder sprains. We discussed the nature of her injuries as well as v arious treatment options. R ecommend working with occupational physical therapy f or s prains of the l eft wrist and shoulder. Would like to see her back in 2 to 3 weeks f or r epeat examination and c are. The patient had the opportunity to ask numerous questions and was in agreement with the plan. Dc Rojas MD Orthopaedic Surgery [facility] [employer] Ordered: XR Shoulder Complete 2+ Views Left Referral Request 2.0 Referral Request 2.0 2. S houlder pain Ordered: XR Shoulder Complete 2+ Views Left Referral Request 2.0 Referral Request 2.0 3. S train of muscle(s) and tendon(s) of the rotator cuff of left shoulder, initial encounter Ordered: Referral Request 2.0 Referral Request 2.0 4. S prain of other part of left wrist and hand, initial encounter Ordered: Referral Request 2.0 Referral Request 2.0 Future Scheduled TestsLaboratoryANA w/Reflex [id number] 05/09/25Free T3 Level 05/09/25Free T4 Level 05/09/25HLA B 27 Disease Association [id number] 05/09/25Cortisol AM [id number] 05/09/25ESR Autoplus 05/09/25Rheumatoid Arthritis Prof [id number] 05/09/25yroid Abs [id number] 05/09/25C-Reactive Protein 05/09/25yroid Stimulating Hormone 05/09/25RadiologyXR Shoulder 4+ Views Left 05/09/25XR Spine Thoracic 3 Views 05/09/25 05/23/2025 [address] [facility] Assessment and Plan Extracted from:Title : Auto-immune concerns - Office Clinic Note Author: MIKY LOPEZ MD Date: 05/09/25 1. 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 She describes to me having polyarthralgia, swelling and joint pain in the morning. S he also describes mid back pain that has persisted and worsened since 3 years ago when she was . She tells me that her thyroid had not been worked up completely either that she is aware of. Given her broad and wide constellation of symptoms, differential is broad and could include things such as rheumatoid arthritis, ankylosing spondylitis, Nadira's thyroiditis. She does not recall having any x-rays of her back. S he had x-ray of her shoulder several years ago after a fall injury and would like to follow-up on what i s going on there, that is her biggest concern for pain at this point. Discussed that t here are labs we could do to evaluate further. A greed to order MATHEW with reflex a nd a rheumatoid panel to rule out rheumatoid arthritis. Also ordered thyroiditis panel. CRP, ESR. Ordered a.m. cortisol as a drenal insufficiency can be common with some of the symptoms and a broad autoimmune complex. Imaging of the thoracic spine ordered given her pain, as well as the shoulder to evaluate further. M marcela need a shoulder MRI moving forward. She is also s cheduled for acupuncture with me June 07 at 10:30 AM, she confirmed that appointment would work. Orders: MATHEW w/Reflex [id number] C-Reactive Protein Cortisol AM [id number] ESR Autoplus Free T3 Level Free T4 Level HLA B 27 Disease Association [id number] Rheumatoid Arthritis Prof [id number] Thyroid Abs [id number] Thyroid Stimulating Hormone XR Shoulder 4+ Views Left XR Spine Thoracic 3 Views Extracted from:Title: [facility] [place] - Skin, Anxiety, Back pain Author: DARIN PIERCE MD Date: 05/05/25 1. S kin lesion Chronic, uncontrolled. Denies family hx of melanoma or personal hx of skin cancer. Desires total body skin exam, concerned about a bump that appears to possible be an AK. Describes h x of 3rd degree sunburn and infrequent 2nd degree sunburn. Patient prefers derm referral at this time for TBSE. - Given extensive sun exposure hx, will refer to derm for skin exam - Recommend sunscreen and minimizing sun exposure moving forward Ordered: Referral Request 2.0 - DoD 2. A nxiety disorder, unspecified Chronic, u ncontrolled. HPI and PE c/w anxiety. No SI/HI. Stable on current regimen. No complaint of s/e of medication non-adherence. Good social support. JUDY- 16 today, 15 previously, likely 2/2 extensive medical care for taking care of her daughter's new diagnosis, autoimmune encephalitis. - Increase buspar to 30mg qd - Continue counseling - Cont. benjamin vick atient does not prefer changing at this time. I think this is a good idea because it could be beneficial for her pain as well. - Patient has atarax prn for acute episodes, does not desire to take regularly - Follow-up in 2-3 months for mood - ER for SI/HI Ordered: Referral Request 2.0 - DoD 3. L ow back pain, unspecified Chronic, nonspecific, uncontrolled. Describes pain worst in low back but otherwise has nonspecific pain over her whole body at times. However, clinical presentation is not suspicious for autoimmune condition at t his t samuel. Hx and PE i s negative for joint swelling, specific joint pain, rash, morning stiffness. Suspect pain is likely driven more by other factors such as hx & #160;of depression, axniety. P atient did not relief with acupuncture, and i s agreeable to continuity of referral - Reassurance that likely not autoimmune at this time, recommend controlling depression, anxiety at this time. - Recommended aerobic exercise regularly with goal of 150m of activity a week - Referral to acupuncture placed - Lidocaine patches ordered for low back pain Orders: busPIRone(BuSpar Dividose 15 mg oral tablet), 1 tab(s), Oral, BID, # 60 tab(s), 0 total refill(s), Maintenance, Pharmacy: [facility] #[id number] [External Rx] lidocaine topical(lidocaine 5% topical patch), 1 patch(es), Topical, Daily, Leave on for up to 12 hours within a 24 hour period (12 hours on, 12 hours off), # 30 patch(es), 3 total refill(s), Maintenance, Pharmacy: [facility] #[id number] [External Rx] Capt Darin Pierce MD Chemistry Technologist, PGY-[address] [place] [address], [facility], [place] Addendum by TERRA ANAYA MD, Family Medicine on May 19, 2025 13:56:52 CDT I was present and available in the family medicine clinic during the patient's appointment.? The case was discussed with me and I agree with the assessment and plan as documented. ? HLF Extracted from:Title: [facility] Acup #5 - LBP, dragons Author: LEONEL DESHPANDE MD Date: 02/14/25 1. L ow back pain Acup t edgar, tolerated well. See proc note for details. Leonel Deshpande MD, CESAR, MPH PGY-3, Family Medicine [facility], [facility], [place] Addendum by FANTASMA SILVA MD on February 15, 2025 14:23:35 CDT I certify that I was present for case discussion in the Family Medicine preceptor room at the time of this encounter. I have reviewed the note and agree with the findings, assessment, and plan except as I have documented below. Follow up as listed. All labs/imaging/consults to be followed by the ordering provider. Maj Efraín Bonilla) Family Medicine Physician [facility] [place], [place] Extracted from:Title: Office Clinic Note - Scar Infilitration Author: SHANT BUENROSTRO DO Date: 01/24/25 1. P ainful surgical scar See procedure narrative. Maj Shant Buenrostro DO Family Medicine Faculty Physician [address] [place] [address], [facility] [place] Extracted from:Title: Office Clinic Note - Acupuncture Author: SHANT BUENROSTRO DO Date: 01/23/25 1. L ow back pain, unspecified See procedure narrative for encounter details. Maj Shant Buenrostro DO Family Medicine Faculty Physician [address] [place] [address], [facility] [place] Extracted from:Title: [facility] - Anxiety Author: DESI ROSS DO Date: 01/20/25 1. A nxiety Acute on chronic. Prescribed buspirone for acute episodes of anxiety. Additionally, could consider switching duloxetine to a different SSRI in the future. Will order referral to psychology for pt as well. Ordered: Referral Request 2.0 - DoD 2. C hronic pain Chronic. Stable. Provided pt with fibromyalgia checklist to fill out and RTC in the future for further evaluation of chronic pain. Pt is currently seeing acupuncture as well. Orders: busPIRone(busPIRone 15 mg oral tablet), See Instructions, Take 1 tab by mouth every 8 hours as needed for acute anxiety., # 45 tab(s), 0 total refill(s), Maintenance, Pharmacy: [facility] #[id number] [External Rx] Desi Ross DO, , [facility], Chemistry Technologist [address] [place] Addendum by TERRA ANAYA MD, Family Medicine on February 10, 2025 17:38:56 CDT I was present and available in the family medicine clinic during the patient's appointment.? The case was discussed with me and I agree with the assessment and plan as documented. ? HLF Extracted from:Title: [facility] - Acup LBP Author: BLANCHE KASPER MD Date: 12/20/24 1. L ow back pain, unspecified See acupuncture note Capt Efraín Thao), [facility], Chemistry Technologist, PGY-2 [employer] Addendum by THONY HALLMAN MD, Family Medicine on December 26, 2024 10:50:37 CDT I certify that I was present for case discussion in the Family Medicine preceptor room at the time of this encounter. I have reviewed the note and agree with the findings, assessment, and plan except as I have documented below. Follow up as listed. All labs/imaging/consults to be followed by the ordering provider. Thony Hallman MD Extracted from:Title: Ambulatory Patient Education Author: PANKAJ FELTON MD Date: 11/22/24 Orthopedics Chronic Back Pain Chronic back pain is back pain that lasts longer than 3 months. The cause of your back pain may not be known. Some common causes include: Wear and tear (degenerative disease) of the bones, disks, or tissues that connect bones to each other (ligaments) in your back. Inflammation and stiffness in your back (arthritis). If you have chronic back pain, you may have times when the pain is more intense (flare-ups). You can also learn to manage the pain with home care. Follow these instructions at home: Watch for any changes in your symptoms. Take these actions to help with your pain: Managing pain and stiffness If told, put ice on the painful area. You may be told to apply ice for the first 24 4 8 hours after a flare-up starts. Put ice in a plastic bag. Place a towel between your skin and the bag. Leave the ice on for 20 minutes, 2 3 times per day. If told, apply heat to the affected area as often as told by your health care provider. Use the heat source that your provider recommends, such as a moist heat pack or a heating pad. Place a towel between your skin and the heat source. Leave the heat on for 20 3 0 minutes. If your skin turns bright red, remove the ice or heat right away to prevent skin damage. The risk of damage is higher if you cannot feel pain, heat, or cold. Try soaking in a warm tub. Activity Avoid bending and other activities that make the pain worse. Have good posture when you stand or sit. When you stand, keep your upper back and neck straight, with your shoulders pulled back. Avoid slouching. When you sit, keep your back straight. Relax your shoulders. Do not round your shoulders or pull them backward. Do not sit or red hat open stack administrator one place for too long. Take brief periods of rest during the day. This will reduce your pain. Resting in a lying or standing position is often better than sitting to rest. When you rest for longer periods, mix in some mild activity or stretching between periods of rest. This will help to prevent stiffness and pain. Get regular exercise. Ask your provider what activities are safe for you. You may have to avoid lifting. Ask your provider how much you can safely lift. If you do lift, always use the right technique. This means you should: Bend your knees. Keep the load close to your body. Avoid twisting. Medicines Take ycjv-xoa-hvneoof and prescription medicines only as told by your provider. You may need to take medicines for pain and inflammation. These may be taken by mouth or put on the skin. You may also be given muscle relaxants. Ask your provider if the medicine prescribed to you: Requires you to avoid driving or using machinery. Can cause constipation. You may need to take these actions to prevent or treat constipation: Drink enough fluid to keep your pee (urine) pale yellow. Take inwp-jgv-ngsxidn or prescription medicines. Eat foods that are high in fiber, such as beans, whole grains, and fresh fruits and vegetables. Limit foods that are high in fat and processed sugars, such as fried or sweet foods. General instructions Sleep on a firm mattress in a comfortable position. Try lying on your side with your knees slightly bent. If you lie on your back, put a pillow under your knees. Do not use any products that contain nicotine or tobacco. These products include cigarettes, chewing tobacco, and vaping devices, such as e-cigarettes. If you need help quitting, ask your provider. Contact a health care provider if: You have pain that does not get better with rest or medicine. You have new pain. You have a fever. You lose weight quickly. You have trouble doing your normal activities. You feel weak or numb in one or both of your legs or feet. Get help right away if: You are not able to control when you pee or poop. You have severe back pain and: Nausea or vomiting. Pain in your chest or abdomen. Shortness of breath. You faint. These symptoms may be an emergency. Get help right away. Call 911. Do not wait to see if the symptoms will go away. Do not drive yourself to the hospital. This information is not intended to replace advice given to you by your health care provider. Make sure you discuss any questions you have with your health care provider. Document Revised: 05/25/2023 Document Reviewed: 05/25/2023 Appear Patient Education 2023 [employer]. Extracted from:Title: ACU- LBP Author: PANKAJ FELTON MD Date: 11/22/24 1. L ow back pain, unspecified A cupuncture Note Date of Consent:03/08/2024 Treatment #: 2 Initial History:03/08 E karen presents to clinic today for first time acupuncture to help with her low back pain. She reports her low back pain started with the third trimester of her current child who is 2 years old, and has recently been w orsening. S topher giving she has not maintained many core exercises so does not have that extra stability; h as not been able to achieve satisfactory e xercise. S he u ses ibuprofen as needed. Denies any red flag symptoms such as incontinence, f oot drop, loss of sensation Interim History: Since last acupuncture over the summer with caring for kids lifting picking of putting down, walking the dog she is at a return of the low back pain. C urrently she is in physical therapy which is giving some relief, however still feels like the muscles are t ight. S eeking adjunct of therapy today. Pain is not deployment related. Patient is not on profile/mobility restriction for this condition. FOCUSED PHYSICAL EXAM: GENERAL: No acute distress ,obese NMSK: S peech is clear and lucid. Normal gait. No focal neuromuscular deficits. Normal ROM. Normal sensation. SKIN: No bleeding, signs of infection, or ecchymosis. Patient presents for evaluation and treatment with medical acupuncture. Routine risks and benefits for treatment with medical acupuncture and associated modalities were reviewed in detail with the patient. Specifically, these included bleeding and infection, worsening flare of symptoms, possible lightheadedness/dizziness, euphoric reaction, and others specific to the treatment. Benefits to include pain relief and as appropriate to the treatment modalities such as improved energy and mood. Treatment duration to be determined by response. Consent signed and placed in chart if not already done at previous visit. TREATMENTS: TMM: Tendinomuscular [place] treatment was performed on: -Ting needle placed on BL67. -Gathering point SI18 Local needles placed in lumbar region of back Localized then generalized erythema noted in the surface area covered. [place] were removed after generalized erythema resolved after approx 20 minutes.? Gua Sha: Gua Sha scraping performed over lumbar spine erector spinae, trapezius ands muscles. Robust erythematous reaction noted. Patient tolerated procedure well without complications. Pain pre-treatment: 5 /10 Pain post-treatment: / 10 Post Treatment Instructions: Patient counseled about possibility of lightheadedness or euphoria during or after t reatment. Home care reviewed: no heavy exercise today, avoid alcohol, intercourse, food that is difficult for you to digest for the next 24 hours. Take all prescribed medication and discuss any changes with your doctor. Pain may increase/decrease/or remain the same in the next 2-4 days. ASP auricular needles (if applicable) will fall out on their own in the next 3-7 days. Advised to watch for signs/symptoms of infection r edness/pus/swelling and f/u RAFAEL or in the ER and to remove ear needles if that happens. Recommend that patient resume all other normal physical activity as tolerated including previously prescribed PT or CBT exercises except for restrictions noted above. The intention is that this patient can use this period of to maximize effect of PT o r CBT and begin to lengthen the interval between acupuncture treatments DISPO: F ollow up in 4-6 weeks t rial Lumbar Pens Capt Pankaj Felton MD Chemistry Technologist P GY-3 [facility] [address] [place], [place] Staffed By:Yobani the above note has been dictated partially or in totality with the assistance of [employer] dictation software. While it was proofread for errors, there may still be grammatical and dictation errors. Addendum by ANDREW ODELL DO on November 22, 2024 13:45:04 JEWELRY STORE MANAGER I certify that I was present for case discussion in the Family Medicine preceptor room at the time of this encounter. I have reviewed the note and agree with the findings, assessment, and plan except as I have documented below. Follow up as listed. All labs/imaging/consults to be followed by the ordering provider. Andrew Odell DO, , [facility], Staff Physician PT meet criteria for tachycardia with HR of 101 and was not repeated during encounter. Will need to follow at next apt, but given pain and only 101 very low concern for need for acute workup at this time. if consistent at next apt (or higher) would recommend CBC and TSH check +/- EKG Extracted from:Title: [facility] [place] acupuncture referral, virtual Author: DESI ROSS DO Date: 10/07/24 1. L ow back pain C hronic. Stable. Referred pt to acupuncture. Ordered: Referral Request 2.0 - DoD Desi Ross DO, Maj, [employer], Chemistry Technologist [address] Addendum by NELSON DIEGO MD on October 10, 2024 13:28:13 JEWELRY STORE MANAGER I was present and available in the family medicine clinic to discuss the patient's care during the time of the appointment. I agree with the resident's assessment and plan as documented. Nelson Diego MD, Faculty, [facility], [facility], Attending Physician Extracted from:Title: [facility] - PT referral (virtual) Author: DESI ROSS DO Date: 09/06/24 1. L ow back pain, unspecified Chronic. Referral for pelvic floor PT placed. Prescribed Robaxin for muscle spasm. Ordered: methocarbamol(methocarbamol 500 mg oral tablet), 2 tab(s), Oral, QID, X 10 days, # 80 tab(s), 0 total refill(s), Acute, 2 tab(s) Oral QID,x10 days, Pharmacy: [facility] #[id number] [External Rx] Referral Request 2.0 - DoD Desi Ross DO, Maj, JENNY, Chemistry Technologist [address]u Addendum by THONY HALLMAN MD on September 06, 2024 15:30:59 JEWELRY STORE MANAGER I certify that I was present for case discussion in the Family Medicine preceptor room at the time of this encounter. I have reviewed the note and agree with the findings, assessment, and plan except as I have documented below. Follow up as listed. All labs/imaging/consults to be followed by the ordering provider. Thony Hallman MD Extracted from:Title: Ambulatory Patient Education Author: PANKAJ FELTON MD Date: 03/08/24 Extracted from:Title: Left wrist and shoulder pain Author: DC ROJAS MD Date: 12/17/22 1. P ain of left wrist 37-year-old female with left wrist and left shoulder sprains. We discussed the nature of her injuries as well as v arious treatment options. R ecommend working with occupational physical therapy f or s prains of the l eft wrist and shoulder. Would like to see her back in 2 to 3 weeks f or r epeat examination and c are. The patient had the opportunity to ask numerous questions and was in agreement with the plan. Dc Rojas MD [facility] Ordered: XR Shoulder Complete 2+ Views Left Referral Request 2.0 Referral Request 2.0 2. S houlder pain Ordered: XR Shoulder Complete 2+ Views Left Referral Request 2.0 Referral Request 2.0 3. S train of muscle(s) and tendon(s) of the rotator cuff of left shoulder, initial encounter Ordered: Referral Request 2.0 Referral Request 2.0 4. S prain of other part of left wrist and hand, initial encounter Ordered: Referral Request 2.0 Referral Request 2.0 Future Scheduled TestsLaboratoryANA w/Reflex [id number] 05/09/25Free T3 Level 05/09/25Free T4 Level 05/09/25HLA B 27 Disease Association [id number] 05/09/25Cortisol AM [id number] 05/09/25ESR Autoplus 05/09/25Rheumatoid Arthritis Prof [id number] 05/09/25yroid Abs [id number] 05/09/25C-Reactive Protein 05/09/25yroid Stimulating Hormone 05/09/25RadiologyXR Shoulder 4+ Views Left 05/09/25XR Spine Thoracic 3 Views 05/09/25 05/23/2025 [id number] Assessment and Plan Extracted from:Title : Auto-immune concerns - Office Clinic Note Author: MIKY LOPEZ MD Date: 05/09/25 1. 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 She describes to me having polyarthralgia, swelling and joint pain in the morning. S he also describes mid back pain that has persisted and worsened since 3 years ago when she was . She tells me that her thyroid had not been worked up completely either that she is aware of. Given her broad and wide constellation of symptoms, differential is broad and could include things such as rheumatoid arthritis, ankylosing spondylitis, Nadira's thyroiditis. She does not recall having any x-rays of her back. S he had x-ray of her shoulder several years ago after a fall injury and would like to follow-up on what i s going on there, that is her biggest concern for pain at this point. Discussed that t here are labs we could do to evaluate further. A greed to order MATHEW with reflex a nd a rheumatoid panel to rule out rheumatoid arthritis. Also ordered thyroiditis panel. CRP, ESR. Ordered a.m. cortisol as a drenal insufficiency can be common with some of the symptoms and a broad autoimmune complex. Imaging of the thoracic spine ordered given her pain, as well as the shoulder to evaluate further. M ay need a shoulder MRI moving forward. She is also s cheduled for acupuncture with me June 07 at 10:30 AM, she confirmed that appointment would work. Orders: MATHEW w/Reflex [id number] C-Reactive Protein Cortisol AM [id number] ESR Autoplus Free T3 Level Free T4 Level HLA B 27 Disease Association [id number] Rheumatoid Arthritis Prof [id number] Thyroid Abs [id number] Thyroid Stimulating Hormone XR Shoulder 4+ Views Left XR Spine Thoracic 3 Views Extracted from:Title: [facility] - Skin, Anxiety, Back pain Author: DARIN PIRECE MD Date: 05/05/25 1. S kin lesion Chronic, uncontrolled. Denies family hx of melanoma or personal hx of skin cancer. Desires total body skin exam, concerned about a bump that appears to possible be an AK. Describes h x of 3rd degree sunburn and infrequent 2nd degree sunburn. Patient prefers derm referral at this time for TBSE. - Given extensive sun exposure hx, will refer to derm for skin exam - Recommend sunscreen and minimizing sun exposure moving forward Ordered: Referral Request 2.0 - DoD 2. A nxiety disorder, unspecified Chronic, u ncontrolled. HPI and PE c/w anxiety. No SI/HI. Stable on current regimen. No complaint of s/e of medication non-adherence. Good social support. JUDY- 16 today, 15 previously, likely 2/2 extensive medical care for taking care of her daughter's new diagnosis, autoimmune encephalitis. - Increase buspar to 30mg qd - Continue counseling - Cont. cymbalta, p atient does not prefer changing at this time. I think this is a good idea because it could be beneficial for her pain as well. - Patient has atarax prn for acute episodes, does not desire to take regularly - Follow-up in 2-3 months for mood - ER for SI/HI Ordered: Referral Request 2.0 - DoD 3. L ow back pain, unspecified Chronic, nonspecific, uncontrolled. Describes pain worst in low back but otherwise has nonspecific pain over her whole body at times. However, clinical presentation is not suspicious for autoimmune condition at t his t samuel. Hx and PE i s negative for joint swelling, specific joint pain, rash, morning stiffness. Suspect pain is likely driven more by other factors such as hx & #160;of depression, axniety. P atient did not relief with acupuncture, and i s agreeable to continuity of referral - Reassurance that likely not autoimmune at this time, recommend controlling depression, anxiety at this time. - Recommended aerobic exercise regularly with goal of 150m of activity a week - Referral to acupuncture placed - Lidocaine patches ordered for low back pain Orders: busPIRone(BuSpar Dividose 15 mg oral tablet), 1 tab(s), Oral, BID, # 60 tab(s), 0 total refill(s), Maintenance, Pharmacy: [facility] #[id number] [External Rx] lidocaine topical(lidocaine 5% topical patch), 1 patch(es), Topical, Daily, Leave on for up to 12 hours within a 24 hour period (12 hours on, 12 hours off), # 30 patch(es), 3 total refill(s), Maintenance, Pharmacy: [facility] #[id number] [External Rx] Capt Darin Pierce MD Chemistry Technologist, PGY-[address] [place] [address], [facility], [place] Addendum by TERRA ANAYA MD, Family Medicine on May 19, 2025 13:56:52 CDT I was present and available in the family medicine clinic during the patient's appointment.? The case was discussed with me and I agree with the assessment and plan as documented. ? HLF Extracted from:Title: [facility] Acup #5 - LBP, dragons Author: LEONEL DESHPANDE MD Date: 02/14/25 1. L ow back pain Acup t edgar, tolerated well. See proc note for details. Leonel Deshpande MD, CESAR, MPH PGY-3, Family Medicine Captain, [facility], [place], [place] Addendum by FANTASMA SILVA MD on February 15, 2025 14:23:35 CDT I certify that I was present for case discussion in the Family Medicine preceptor room at the time of this encounter. I have reviewed the note and agree with the findings, assessment, and plan except as I have documented below. Follow up as listed. All labs/imaging/consults to be followed by the ordering provider. Maj Efraín Bonilla) Family Medicine Physician [facility] [place], [place] Extracted from:Title: Office Clinic Note - Scar Infilitration Author: SHANT BUENROSTRO, Date: 01/24/25 1. P ainful surgical scar See procedure narrative. Maj Shant Buenrostro DO Family Medicine Faculty Physician [address] [place] [address] Extracted from:Title: Office Clinic Note - Acupuncture Author: SHANT BUENROSTRO DO Date: 01/23/25 1. L ow back pain, unspecified See procedure narrative for encounter details. Maj Shant Buenrostro DO Family Medicine Faculty Physician [address] [place] [address] Extracted from:Title: [facility] - Anxiety Author: DESI ROSS, DO Date: 01/20/25 1. A nxiety Acute on chronic. Prescribed buspirone for acute episodes of anxiety. Additionally, could consider switching duloxetine to a different SSRI in the future. Will order referral to psychology for pt as well. Ordered: Referral Request 2.0 - DoD 2. C hronic pain Chronic. Stable. Provided pt with fibromyalgia checklist to fill out and RTC in the future for further evaluation of chronic pain. Pt is currently seeing acupuncture as well. Orders: busPIRone(busPIRone 15 mg oral tablet), See Instructions, Take 1 tab by mouth every 8 hours as needed for acute anxiety., # 45 tab(s), 0 total refill(s), Maintenance, Pharmacy: [facility] #[id number] [External Rx] Desi Ross DO, , [facility], Chemistry Technologist [address], [place] Addendum by TERRA ANAYA MD, Family Medicine on February 10, 2025 17:38:56 CDT I was present and available in the family medicine clinic during the patient's appointment.? The case was discussed with me and I agree with the assessment and plan as documented. ? HLF Extracted from:Title: [facility] - Acup LBP Author: BLANCHE KASPER MD Date: 12/20/24 1. L ow back pain, unspecified See acupuncture note Capt Efraín Thao), [facility], Chemistry Technologist, PGY-2 [place] Addendum by THONY HALLMAN MD, Family Medicine on December 26, 2024 10:50:37 CDT I certify that I was present for case discussion in the Family Medicine preceptor room at the time of this encounter. I have reviewed the note and agree with the findings, assessment, and plan except as I have documented below. Follow up as listed. All labs/imaging/consults to be followed by the ordering provider. Thony Hallman MD Extracted from:Title: Ambulatory Patient Education Author: PANKAJ FELTON MD Date: 11/22/24 Orthopedics Chronic Back Pain Chronic back pain is back pain that lasts longer than 3 months. The cause of your back pain may not be known. Some common causes include: Wear and tear (degenerative disease) of the bones, disks, or tissues that connect bones to each other (ligaments) in your back. Inflammation and stiffness in your back (arthritis). If you have chronic back pain, you may have times when the pain is more intense (flare-ups). You can also learn to manage the pain with home care. Follow these instructions at home: Watch for any changes in your symptoms. Take these actions to help with your pain: Managing pain and stiffness If told, put ice on the painful area. You may be told to apply ice for the first 24 4 8 hours after a flare-up starts. Put ice in a plastic bag. Place a towel between your skin and the bag. Leave the ice on for 20 minutes, 2 3 times per day. If told, apply heat to the affected area as often as told by your health care provider. Use the heat source that your provider recommends, such as a moist heat pack or a heating pad. Place a towel between your skin and the heat source. Leave the heat on for 20 3 0 minutes. If your skin turns bright red, remove the ice or heat right away to prevent skin damage. The risk of damage is higher if you cannot feel pain, heat, or cold. Try soaking in a warm tub. Activity Avoid bending and other activities that make the pain worse. Have good posture when you stand or sit. When you stand, keep your upper back and neck straight, with your shoulders pulled back. Avoid slouching. When you sit, keep your back straight. Relax your shoulders. Do not round your shoulders or pull them backward. Do not sit or red hat open stack administrator one place for too long. Take brief periods of rest during the day. This will reduce your pain. Resting in a lying or standing position is often better than sitting to rest. When you rest for longer periods, mix in some mild activity or stretching between periods of rest. This will help to prevent stiffness and pain. Get regular exercise. Ask your provider what activities are safe for you. You may have to avoid lifting. Ask your provider how much you can safely lift. If you do lift, always use the right technique. This means you should: Bend your knees. Keep the load close to your body. Avoid twisting. Medicines Take hhnv-wje-akzlcwr and prescription medicines only as told by your provider. You may need to take medicines for pain and inflammation. These may be taken by mouth or put on the skin. You may also be given muscle relaxants. Ask your provider if the medicine prescribed to you: Requires you to avoid driving or using machinery. Can cause constipation. You may need to take these actions to prevent or treat constipation: Drink enough fluid to keep your pee (urine) pale yellow. Take otjr-mil-ysahaag or prescription medicines. Eat foods that are high in fiber, such as beans, whole grains, and fresh fruits and vegetables. Limit foods that are high in fat and processed sugars, such as fried or sweet foods. General instructions Sleep on a firm mattress in a comfortable position. Try lying on your side with your knees slightly bent. If you lie on your back, put a pillow under your knees. Do not use any products that contain nicotine or tobacco. These products include cigarettes, chewing tobacco, and vaping devices, such as e-cigarettes. If you need help quitting, ask your provider. Contact a health care provider if: You have pain that does not get better with rest or medicine. You have new pain. You have a fever. You lose weight quickly. You have trouble doing your normal activities. You feel weak or numb in one or both of your legs or feet. Get help right away if: You are not able to control when you pee or poop. You have severe back pain and: Nausea or vomiting. Pain in your chest or abdomen. Shortness of breath. You faint. These symptoms may be an emergency. Get help right away. Call 911. Do not wait to see if the symptoms will go away. Do not drive yourself to the hospital. This information is not intended to replace advice given to you by your health care provider. Make sure you discuss any questions you have with your health care provider. Document Revised: 05/25/2023 Document Reviewed: 05/25/2023 Appear Patient Education 2023 [employer]. Extracted from:Title: ACU- LBP Author: PANKAJ FELTON MD Date: 11/22/24 1. L ow back pain, unspecified A cupuncture Note Date of Consent:03/08/2024 Treatment #: 2 Initial History:03/08 Franchesca jones presents to clinic today for first time acupuncture to help with her low back pain. She reports her low back pain started with the third trimester of her current child who is 2 years old, and has recently been w orsening. S topher giving she has not maintained many core exercises so does not have that extra stability; h as not been able to achieve satisfactory e xercise. S he u ses ibuprofen as needed. Denies any red flag symptoms such as incontinence, f oot drop, loss of sensation Interim History: Since last acupuncture over the summer with caring for kids lifting picking of putting down, walking the dog she is at a return of the low back pain. C urrently she is in physical therapy which is giving some relief, however still feels like the muscles are t ight. S eeking adjunct of therapy today. Pain is not deployment related. Patient is not on profile/mobility restriction for this condition. FOCUSED PHYSICAL EXAM: GENERAL: No acute distress ,obese NMSK: S peech is clear and lucid. Normal gait. No focal neuromuscular deficits. Normal ROM. Normal sensation. SKIN: No bleeding, signs of infection, or ecchymosis. Patient presents for evaluation and treatment with medical acupuncture. Routine risks and benefits for treatment with medical acupuncture and associated modalities were reviewed in detail with the patient. Specifically, these included bleeding and infection, worsening flare of symptoms, possible lightheadedness/dizziness, euphoric reaction, and others specific to the treatment. Benefits to include pain relief and as appropriate to the treatment modalities such as improved energy and mood. Treatment duration to be determined by response. Consent signed and placed in chart if not already done at previous visit. TREATMENTS: TMM: Tendinomuscular [place] treatment was performed on: -Ting needle placed on BL67. -[place] SI18 Local needles placed in lumbar region of back Localized then generalized erythema noted in the surface area covered. [place] were removed after generalized erythema resolved after approx 20 minutes.? Gua Sha: Gua Sha scraping performed over lumbar spine erector spinae, trapezius ands muscles. Robust erythematous reaction noted. Patient tolerated procedure well without complications. Pain pre-treatment: 5 /10 Pain post-treatment: / 10 Post Treatment Instructions: Patient counseled about possibility of lightheadedness or euphoria during or after t reatment. Home care reviewed: no heavy exercise today, avoid alcohol, intercourse, food that is difficult for you to digest for the next 24 hours. Take all prescribed medication and discuss any changes with your doctor. Pain may increase/decrease/or remain the same in the next 2-4 days. ASP auricular needles (if applicable) will fall out on their own in the next 3-7 days. Advised to watch for signs/symptoms of infection r edness/pus/swelling and f/u RAFAEL or in the ER and to remove ear needles if that happens. Recommend that patient resume all other normal physical activity as tolerated including previously prescribed PT or CBT exercises except for restrictions noted above. The intention is that this patient can use this period of to maximize effect of PT o r CBT and begin to lengthen the interval between acupuncture treatments DISPO: F ollow up in 4-6 weeks t rial Lumbar Pens Capt Pankaj Felton MD Chemistry Technologist P GY-3 [facility]/ [address] [place], [place] Staffed By:Yobani the above note has been dictated partially or in totality with the assistance of [employer] dictation software. While it was proofread for errors, there may still be grammatical and dictation errors. Addendum by ANDREW ODELL DO on November 22, 2024 13:45:04 JEWELRY STORE MANAGER I certify that I was present for case discussion in the Family Medicine preceptor room at the time of this encounter. I have reviewed the note and agree with the findings, assessment, and plan except as I have documented below. Follow up as listed. All labs/imaging/consults to be followed by the ordering provider. Andrew Odell DO, , [facility], Staff Physician PT meet criteria for tachycardia with HR of 101 and was not repeated during encounter. Will need to follow at next apt, but given pain and only 101 very low concern for need for acute workup at this time. if consistent at next apt (or higher) would recommend CBC and TSH check +/- EKG Extracted from:Title: [facility] - acupuncture referral, virtual Author: DESI ROSS DO Date: 10/07/24 1. L ow back pain C hronic. Stable. Referred pt to acupuncture. Ordered: Referral Request 2.0 - DoD Desi Ross DO, [facility], [facility], Chemistry Technologist [facility] [place], [place] Addendum by NELSON DIEGO MD on October 10, 2024 13:28:13 JEWELRY STORE MANAGER I was present and available in the family medicine clinic to discuss the patient's care during the time of the appointment. I agree with the resident's assessment and plan as documented. Nelson Diego MD, Faculty, [facility], [facility], Attending Physician Extracted from:Title: [facility] - PT referral (virtual) Author: DESI ROSS DO Date: 09/06/24 1. L ow back pain, unspecified Chronic. Referral for pelvic floor PT placed. Prescribed Robaxin for muscle spasm. Ordered: methocarbamol(methocarbamol 500 mg oral tablet), 2 tab(s), Oral, QID, X 10 days, # 80 tab(s), 0 total refill(s), Acute, 2 tab(s) Oral QID,x10 days, Pharmacy: [facility] #[id number] [External Rx] Referral Request 2.0 - DoD Desi Ross DO, [facility], [facility], Chemistry Technologist [facility] MD, [employer] Addendum by THONY HALLMAN MD on September 06, 2024 15:30:59 JEWELRY STORE MANAGER I certify that I was present for case discussion in the Family Medicine preceptor room at the time of this encounter. I have reviewed the note and agree with the findings, assessment, and plan except as I have documented below. Follow up as listed. All labs/imaging/consults to be followed by the ordering provider. Thony Hallman MD Extracted from:Title: Ambulatory Patient Education Author: PANKAJ FELTON MD Date: 03/08/24 Extracted from:Title: Left wrist and shoulder pain Author: DC ROJAS MD Date: 12/17/22 1. P ain of left wrist 37-year-old female with left wrist and left shoulder sprains. We discussed the nature of her injuries as well as v arious treatment options. R ecommend working with occupational physical therapy f or s prains of the l eft wrist and shoulder. Would like to see her back in 2 to 3 weeks f or r epeat examination and c are. The patient had the opportunity to ask numerous questions and was in agreement with the plan. Dc Rojas MD Orthopaedic Surgery [facility] Ordered: XR Shoulder Complete 2+ Views Left Referral Request 2.0 Referral Request 2.0 2. S houlder pain Ordered: XR Shoulder Complete 2+ Views Left Referral Request 2.0 Referral Request 2.0 3. S train of muscle(s) and tendon(s) of the rotator cuff of left shoulder, initial encounter Ordered: Referral Request 2.0 Referral Request 2.0 4. S prain of other part of left wrist and hand, initial encounter Ordered: Referral Request 2.0 Referral Request 2.0 Future Scheduled TestsLaboratoryANA w/Reflex [id number] 05/09/25Free T3 Level 05/09/25Free T4 Level 05/09/25HLA B 27 Disease Association [id number] 05/09/25Cortisol AM [id number] 05/09/25ESR Autoplus 05/09/25Rheumatoid Arthritis Prof [id number] 05/09/25yroid Abs [id number] 05/09/25C-Reactive Protein 05/09/25yroid Stimulating Hormone 05/09/25RadiologyXR Shoulder 4+ Views Left 05/09/25XR Spine Thoracic 3 Views 05/09/25 05/23/2025 Unknown Organization Functional Status Combined list of recent functional and cognitive assessments recorded at [facility] [employer] [facility] ([facility] Functional Caldwell Measurement (FIM) Scale: 1 = Total Assistance (Subject = 0% +), 2 = Maximal Assistance (Subject = 25% +), 3 = Moderate Assistance (Subject = 50% +), 4 = Minimal Assistance (Subject = 75% +), 5 = Supervision, 6 = Modified Caldwell (Device), 7 = Complete Caldwell (Timely, Safely). Assessment Date/Time Source Assessment Type Assessment Skill Assessment Score Assessment Details No data available for this section
[2025-05-23 19:15] LABS: Alanine Aminotransferase 23 U/L (6-35); Albumin Level 4.2 g/dL (3.5-5.1); Alkaline Phosphatase 90 U/L (38-126); Anion Gap 8 mmol/L (4-12); Aspartate Amino Transferase 34 U/L (14-36); Bilirubin,Total 0.3 mg/dL (0.2-1.3); Blood Urea Nitrogen 13 mg/dL (7-17); CRP 1.5 mg/dL (<1.0); Calcium 9.1 mg/dL (8.4-10.2); Carbon Dioxide 25 mmol/L (22-30); Chloride 102 mmol/L (98-107); Estimated Glomerular Filt Rate > 60; Glucose 255 mg/dL (65-110); Potassium 4.5 mmol/L (3.4-5.0); Sodium 135 mmol/L (137-145); Total Protein 7.6 g/dL (6.3-8.2)
[2025-05-23 19:25] LABS: Hematocrit 39.9 % (37.0-47.0); Hemoglobin 12.5 g/dL (12.0-15.0); Immature Granulocyte Percent A 0.3 % (0-0.5); Lymphocytes Absolute Auto 1.56 K/mm3 (0.9-3.2); Mean Corpuscular HGB Conc 31.3 g/dl (32-36); Mean Corpuscular Hemoglobin 24.9 pg (26-34); Mean Corpuscular Volume 79.5 fl (80-100); Nucleated Red Blood Cells Absolute Auto 0.000 K/mm3 (0.0-0.012); Nucleated Red Blood Cells Perc 0.0 % (0.0-0.2); Platelet Count Result 298 k/mm3 (150-375); Red Blood Count 5.02 M/mm3 (4.2-5.4); White Blood Count 7.5 K/mm3 (4.5-10.0)
[2025-05-23 20:14] LABS: Add Urine Microscopic? YES; Appearance Urine Clear (Clear); Glucose Urine UA 2+ mg/dL (Negative); Leukocyte Esterase Ur Negative LEU/UL (Negative); Need Manual Microscopic Reviewed; Nitrate Urine Negative (Negative); Non Pathogenic Casts 0-2; Specific Grav Ur 1.029 (1.001-1.035)
[2025-05-24 18:08] LABS: ANA by IFA Rfx Titer/Pattern Positive (.)
[2025-05-27 15:09] LABS: PTT-LA 45.7 sec (0.0-43.5); PTT-LA Incub Mix YES YES; PTT-LA Mix YES YES
== END 2025-05-23 11:30 | disposition home or self-care (01) ==
LOC: ANHGOSHLAB 11:29
PROVIDERS: PCP Internal Medicine; Visit Provider Clinical Nurse Specialist
DX: E06.3 Autoimmune thyroiditis (principal); E03.9 Hypothyroidism, unspecified; M79.10 Myalgia, unspecified site
CPT/HCPCS: 36415; 80053; 81001; 81291; 82570; 85025; 85652; 85732; 86038; 86140; 86430